=== PATIENT | female | born 1980 | race Caucasian/White ===

== ENCOUNTER 2025-06-06 17:36 | Inpatient (IN) ==
--- NOTE | 2025-06-06 17:49 | Emergency Department Note ---
Impression & Plan Colitis, Melena, Inflammatory bowel disease, Abdominal pain ED Provider Note NAME: SIERRA FALK AGE: 45 SEX: F : 1980 ARRIVES VIA: Walk-In INFORMANT: Patient herself and family. ED PROVIDER(S): Qian Valentino PA-C, [Pamela Paulino MD] CHIEF COMPLAINT: Abdominal pain HISTORY OF PRESENTING ILLNESS: The patient is a 45-year-old female with no other significant past medical history who presents to the emergency department due to severe lower abdominal pain, nausea, and vomiting. Her abdominal pain is worse in the left lower quadrant. She reports having bloody stools for the last 2 months and has been following with her primary care provider. She states she is in the process of being diagnosed with ulcerative colitis and has completed multiple rounds of antibiotics and steroids however is not able to see GI for another month. She reports pain, nausea, and bloody stools are persistent and worsening. She had a colonoscopy in February that removed a polyp which was normal and did not show any other abnormality. She then reported feeling extremely constipated, being prescribed magnesium citrate, and then having abdominal pain and blood in her stool since then. She is tearful and confirms this is her fourth emergency department visit and she feels as if she has not gotten any help. She denies fever, chest pain, shortness of breath, URI symptoms, urinary symptoms. REVIEW OF SYSTEMS: See HPI for pertinent positives and pertinent negatives. ALLERGIES: NKDA MEDICATIONS: See below PAST MEDICAL HISTORY: See below PHYSICAL EXAM: VITALS: Vitals are noted on the nurses note and reviewed by myself. Vital signs stable. GENERAL: 45-year-old female, ill-appearing, tearful, in no acute distress, nondiaphoretic, well-developed well-nourished. SKIN: Pale appearing. Capillary refill less than 2 seconds. HEENT: Normocephalic. PERRLA. EOMI. Nares patent. Mucous membranes moist. Neck is supple without nuchal rigidity. HEART: Regular rate and rhythm without murmurs gallops or rubs. LUNGS: CTA BL without wheezes, rales or rhonchi. No retractions or accessory muscle use. ABDOMEN: Positive BS x 4. Soft, diffuse tenderness worse in the LLQ, without masses or organomegaly. Chauhan sign negative. No guarding or rebound tenderness. MUSCULOSKELETAL: No gross musculoskeletal defects. NEURO: Patient was alert and oriented to person place and time. No focal neurological deficits. RECTAL - No rectal fissures. No active bleeding. A sterile, water-soluble lubricant was applied to the examiner's finger prior to internal exam. No rectal vault tenderness. No rectal masses. Stool Guaiac Test: Hemoccult positive. DIFFERENTIAL DIAGNOSIS: Differential diagnosis includes appendicitis, GI bleed, UC, Crohn's, hemorrhoids, diverticulitis, bowel obstruction, inflammatory bowel disease, renal colic, PUD, biliary pathology, pancreatitis, mesenteric ischemia, aortic pathology, infection, genitourinary, UTI, perforated viscus, among others. ED COURSE AND MEDICAL DECISION MAKING: MEDICATIONS GIVEN: Zofran 4 mg IV, Tylenol 1000 mg IV, morphine 4 mg IV, 1 L normal saline, morphine 2 mg IV, Zofran 4 mg IV, morphine 2 mg IV MONITOR: Continuous night shift manager: Order was placed for continuous night shift manager. Patient was placed on the night shift manager and continuous pulse ox. Patient was noted to be in normal sinus rhythm at an initial rate of 115 bpm per my interpretation. EKG: EKG was interpreted by myself as sinus tachycardia. No obvious arrhythmia. MT interval [address] or T wave abnormality. No previous EKG for comparison. INTERPRETATION OF LABS: I interpreted the labs with full lab results as below in the lab section of this note. Pertinent lab results discussed in the MDM section below. INTERPRETATION OF IMAGING: I informally interpreted the patient's CT abdomen and pelvis which does show colitis. No obvious gallbladder pathology, no obstructing calculi, no bowel obstruction. I reviewed the formal report below. ESCALATION OF CARE CONSIDERED: Escalation of care was considered as the patient presents to the emergency department due to hematochezia for 2 months and in the process of being diagnosed with UC by primary care. She is not able to get in with a GI specialist for another month. Full workup in ER shows severe colitis, Hemoccult positive, and intractable abdominal pain, nausea, and vomiting. The patient was admitted to medicine for further management. CONSULTATIONS: On-call hospitalist - Presented the patient and findings of severe colitis and hematochezia for 2 months. Patient has tried 2 rounds of antibiotics and steroids without improvement. Patient is still having abdominal pain, nausea, and vomiting. Hemoccult positive. They agreed to evaluate the patient and admitting her to medicine. MDM SUMMARY: I evaluated the 45-year-old female who presents to the emergency department due to 2 months of blood in her stool, abdominal pain, nausea, and vomiting. See HPI and PE above. Patient is tachycardic. She is normotensive and afebrile. Initially Zofran, Tylenol, morphine, and 1 L normal saline given for symptom management. Labs obtained showing no leukocytosis. Hemoglobin 10.3 hematocrit 32.5. No ARCENIO. Lactate 1.4. Procalcitonin 0.28. Calcium lowered at 8.2. No other electrolyte abnormality. Normal LFTs. Troponin 4.7. CRP 11.5. ESR 109. All labs reviewed with the patient. Urinalysis obtained showing no concern for UTI or hematuria. Hemoccult positive. Additionally 2 mg morphine and [address] abdomen pelvis shows severe colitis of the left hemicolon and rectosigmoid. Pancreas appears mildly edematous and lipase is < 3. Incidental finding of a 3 mm right middle lobe nodule that is nonspecific noted recommending follow-up CT in 3 to 6 months. All imaging results including incidental findings reviewed with the patient. Patient is still in a significant amount of discomfort. I do believe the patient warrants admission for further management and treatment. Consultation with the on-call hospitalist can be seen in detail above. They agreed to evaluating the patient and admitting her to medicine. She was given another morphine 2 mg IV. Patient is agreeable to admission and all questions answered. The patient was admitted in stable condition. DIAGNOSIS: Colitis, melena, IBD, abdominal pain The chart was completed utilizing [employer] Speech voice recognition software. Grammatical errors, random word insertions, pronoun errors, and incomplete sentences are an occasional consequence of this system due to software limitations, ambient noise, and hardware issues. Any formal questions or concerns about the content, text, or information contained within the body of this dictation should be directly addressed to the provider for clarification. TREATMENT PLAN/DISCHARGE INSTRUCTIONS: The patient was admitted to the hospital. See that note for further workup and management. 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 Beliefs That Will Affect Care: None Current Living Situation: Family Current Living Situation Comment: lives w/ 2 school age children Feels Safe at Home: Yes Assistive Devices: None Allergies Allergies Allergy/AdvReac Type Severity Reaction Status Date / Time No Known Allergies Allergy Unverified 06/06/25 21:55 Home Meds Home Medications Medication Instructions Recorded Confirmed ferrous sulfate 325 mg (65 mg 325 mg PO HS 06/06/25 06/06/25 iron) tablet ondansetron 4 mg disintegrating 4 mg PO Q6 PRN Nausea And Vomiting 06/06/25 06/06/25 tablet prednisone 10 mg tablets in a dose 10 mg PO UD 06/06/25 06/06/25 pack promethazine 12.5 mg tablet 12.5 mg PO Q6 PRN Nausea 06/06/25 06/06/25 quetiapine 25 mg tablet 25 mg PO HS 06/06/25 06/06/25 quetiapine 50 mg tablet 50 mg PO HS 06/06/25 06/06/25 Results & Data (ED) Vital Signs Vital Signs - 24 hr 06/06/25 17:44 Temperature 36.3 C L Temperature Source Temporal Artery Scan Pulse Rate 140 H Pulse Rhythm Regular Respiratory Rate 20 Respiratory Effort / Characteristics Non-Labored Spontaneous Respiratory Depth Normal Respiratory Pattern Regular Blood Pressure 108/88 Blood Pressure Mean 94 Pulse Oximetry 99 Oxygen Delivery Method Room Air Sepsis Recent Fever Within 48 Hours No Sepsis New/Unexplained Change in Mental Status No Sepsis Action Taken by Nursing No Action Required Laboratory Data 06/09/25 09:01 06/09/25 08:20 Lab Results 06/06/25 06/06/25 06/06/25 Range/Units 18:02 19:30 20:05 WBC 10.57 (4.8-10.8) K/ul RBC 3.32 L (4.20-5.40) M/uL Hgb 10.3 L (12.0-16.0) g/dL Hct 32.5 L (37.0-47.0) % MCV 97.9 (80.0-100.0) fL MCH 31.0 (25.0-34.0) pg MCHC 31.7 L (32.0-36.0) g/dL RDW Std Deviation 56.5 H (36.4-46.3) fL RDW Coeff of Pancho 16.2 H (11.5-14.5) % Plt Count 777 H (130-400) K/uL MPV 8.1 L (9.4-12.4) fL Immature Gran % (Auto) 6.2 % Neut % (Auto) 65.9 % Lymph % (Auto) 19.8 % Bucks % (Auto) 6.9 % Eos % (Auto) 0.5 % Baso % (Auto) 0.7 % Neut # (Auto) 6.97 H (1.40-6.50) K/uL Lymph # (Auto) 2.09 (1.20-3.40) K/uL Bucks # (Auto) 0.73 H (0.11-0.59) K/uL Eos # (Auto) 0.05 (0.00-0.50) K/uL Baso # (Auto) 0.07 (0.00-0.20) K/uL Immature Gran # (Auto) 0.66 H (0.01-0.20) K/uL Absolute Nucleated RBC 0.19 H (0.00-0.12) K/uL Nucleated RBC % (auto) 1.8 % Toxic Vacuolation Occasional Dohle Bodies 1+ Polychromasia 2+ ESR 109 H (0-20) mm/hr Sodium 134 L (136-145) mmol/L Potassium 3.7 (3.5-5.1) mmol/L Chloride 97 L (98-107) mmol/L Carbon Dioxide 27 (21-32) mmol/L Anion Gap 10 (3-11) BUN 11 (6-23) mg/dl Creatinine 0.55 L (0.6-1.2) mg/dl Est Cr Clr Drug Dosing 118.0 ml/min eGFR 115.84 BUN/Creatinine Ratio 20.0 (10-20) Glucose 108 H (70-99(Fasting)) mg/dl Lactate 1.7 (0.4-2.0) mmol/L Calcium 8.2 L (8.6-10.3) mg/dl Total Bilirubin 0.4 (0.2-1.0) mg/dl AST 18 (13-39) U/L ALT 55 H (7-52) U/L Alkaline Phosphatase 124 H (34-104) U/L Troponin I High Sens 4.7 (0-14) pg/ml C-Reactive Protein 11.50 H (0-0.5) mg/dl Total Protein 6.2 (6.0-8.3) gm/dl Albumin 2.7 L (3.4-5.0) gm/dl Globulin 3.5 (2.5-4.0) gm/dl Albumin/Globulin Ratio 0.8 L (0.9-2) Lipase < 3 L (11-82) U/L Procalcitonin 0.28 (0-0.5) ng/ml Urine Color Yellow Urine Appearance Clear (Clear) Urine pH 6.5 (4.5-7.5) Ur Specific [place] 1.020 (1.000-1.030) Urine Protein Negative (Negative) Urine Glucose (UA) Negative (Negative) Urine Ketones Negative (Negative) Urine Blood Negative (Negative) Urine Nitrite Negative (Negative) Urine Bilirubin Negative (Negative) Urine Urobilinogen Negative (Negative) Ur Leukocyte Esterase Trace H (Negative) Urine WBC (Auto) 0-5 (0-5) /hpf Urine RBC (Auto) 0-2 (0-2) /hpf U Hyaline Cast (Auto) 0-2 (0-2) /lpf U Epithel Cells (Auto) 3-5 H (0-2) /hpf Urine Bacteria (Auto) None Seen (None Seen) Urine Comment Hep Bs Antibody Immune Hep Bs Antibody, Quant > 500.00 (>or=10mIU/mL Immune) mIU/mL Hepatitis C Antibody Negative (Negative) Administered Medications Ergocalciferol (Ergocalciferol 1250 Mcg (50,000 Units) Cap) 1,250 mcg PO Q7D@0900 [facility] Stop: 07/08/25 14:59 Last Admin: 06/08/25 16:30 Dose: 1,250 mcg Documented By: TLM Hydromorphone HCl (Hydromorphone Inj 0.5 Mg/0.5 Ml Syr) 0.25 mg IV Q4H PRN PRN Reason: Moderate Pain (Scale 4, 5, 6) Stop: 06/21/25 02:49 Last Admin: 06/09/25 07:57 Dose: 0.25 mg Documented By: Admin: 06/08/25 15:44 Dose: 0.25 mg Documented By: ROLLY Hydromorphone HCl (Hydromorphone Inj 0.5 Mg/0.5 Ml Syr) 0.5 mg IV Q4H PRN PRN Reason: Severe Pain (Scale 7, 8, 9,10) Stop: 06/21/25 02:49 Last Admin: 06/09/25 20:58 Dose: 0.5 mg Documented By: Admin: 06/09/25 13:57 Dose: 0.5 mg Documented By: Admin: 06/09/25 02:46 Dose: 0.5 mg Documented By: Admin: 06/08/25 22:35 Dose: 0.5 mg Documented By: Admin: 06/08/25 16:30 Dose: 0.5 mg Documented By: Admin: 06/08/25 05:18 Dose: 0.5 mg Documented By: Admin: 06/07/25 23:47 Dose: 0.5 mg Documented By: Admin: 06/07/25 19:57 Dose: 0.5 mg Documented By: Admin: 06/07/25 15:46 Dose: 0.5 mg Documented By: Admin: 06/07/25 11:59 Dose: 0.5 mg Documented By: Admin: 06/07/25 08:55 Dose: 0.5 mg Documented By: ASA Sodium Chloride (Nss) 1,000 mls @ 150 mls/hr IV .Q6H40M YESSICA Stop: 06/10/25 02:49 Last Admin: 06/09/25 04:47 Dose: Not Given Documented By: Infusion: 06/08/25 19:47 Dose: Infused Documented By: Infusion: 06/08/25 15:50 Dose: 150 mls/hr Documented By: Infusion: 06/08/25 14:05 Dose: 0 mls/hr Documented By: Admin: 06/08/25 10:10 Dose: 150 mls/hr Documented By: Infusion: 06/08/25 09:59 Dose: Infused Documented By: Admin: 06/08/25 03:18 Dose: 150 mls/hr Documented By: Infusion: 06/07/25 23:34 Dose: Infused Documented By: Admin: 06/07/25 18:34 Dose: 200 mls/hr Documented By: Infusion: 06/07/25 17:48 Dose: Infused Documented By: Admin: 06/07/25 12:48 Dose: 200 mls/hr Documented By: Infusion: 06/07/25 12:48 Dose: Infused Documented By: Admin: 06/07/25 03:01 Dose: 100 mls/hr Documented By: CARLIE Acetaminophen (Ofirmev) 1,000 mg in 100 mls @ 400 mls/hr IV Q8H PRN PRN Reason: Pain or Fever Stop: 06/10/25 02:49 Last Infusion: 06/08/25 09:40 Dose: Infused Documented By: Admin: 06/08/25 09:25 Dose: 400 mls/hr Documented By: JESSICA Pantoprazole Sodium (Protonix) 40 mg in 10 mls @ 5 mls/min IV BID YESSICA Stop: 07/07/25 20:59 Last Admin: 06/09/25 20:58 Dose: 5 mls/min Documented By: Admin: 06/09/25 07:59 Dose: 5 mls/min Documented By: Admin: 06/08/25 20:44 Dose: 5 mls/min Documented By: Admin: 06/08/25 08:45 Dose: 5 mls/min Documented By: Admin: 06/07/25 19:49 Dose: 5 mls/min Documented By: Methylprednisolone 30 mg/ (Syringe) 0.48 mls @ 1.5 mls/min IV Q12H YESSICA Stop: 07/08/25 15:44 Last Admin: 06/09/25 16:23 Dose: 1.5 mls/min Documented By: Admin: 06/09/25 02:47 Dose: 1.5 mls/min Documented By: Admin: 06/08/25 16:30 Dose: 1.5 mls/min Documented By: JESSICA Iron Sucrose 200 mg/ Sodium (Chloride) 110 mls @ 220 mls/hr IV DAILY YESSICA Stop: 06/12/25 15:14 Last Infusion: 06/09/25 17:05 Dose: Infused Documented By: Admin: 06/09/25 16:22 Dose: 220 mls/hr Documented By: GERRY Mesalamine (Mesalamine 800 Mg Tabcr) 800 mg PO TID YESSICA Stop: 07/09/25 13:59 Last Admin: 06/09/25 20:58 Dose: 800 mg Documented By: Admin: 06/09/25 13:57 Dose: 800 mg Documented By: GERRY Ondansetron HCl (Ondansetron Inj 2 Mg/Ml 2 Ml Vial) 4 mg IV Q6H PRN PRN Reason: Nausea Stop: 07/07/25 02:49 Last Admin: 06/08/25 15:45 Dose: 4 mg Documented By: Admin: 06/08/25 00:25 Dose: 4 mg Documented By: Admin: 06/07/25 07:54 Dose: 4 mg Documented By: ANAY Quetiapine Fumarate (Quetiapine Fumarate 25 Mg Tablet) 75 mg PO HS YESSICA Stop: 07/07/25 20:59 Last Admin: 06/09/25 20:58 Dose: 75 mg Documented By: Admin: 06/08/25 20:45 Dose: 75 mg Documented By: Admin: 06/07/25 19:49 Dose: 75 mg Documented By: MG Vancomycin HCl (Vancomycin Hcl 125 Mg Cap) 125 mg PO Q6 YESSICA Stop: 06/17/25 05:59 Last Admin: 06/09/25 17:59 Dose: 125 mg Documented By: Admin: 06/09/25 11:29 Dose: 125 mg Documented By: Admin: 06/09/25 06:22 Dose: 125 mg Documented By: Admin: 06/08/25 22:49 Dose: 125 mg Documented By: Admin: 06/08/25 16:30 Dose: 125 mg Documented By: Admin: 06/08/25 12:30 Dose: Not Given Documented By: Admin: 06/08/25 05:19 Dose: 125 mg Documented By: Admin: 06/07/25 23:11 Dose: 125 mg Documented By: Admin: 06/07/25 18:46 Dose: 125 mg Documented By: Admin: 06/07/25 11:59 Dose: 125 mg Documented By: Admin: 06/07/25 05:34 Dose: 125 mg Documented By: BJS Discontinued Medications Bisacodyl (Bisacodyl 5 Mg Tabec) 20 mg PO NOW ONE Stop: 06/07/25 16:37 Last Admin: 06/07/25 18:13 Dose: 20 mg Documented By: ASA Diphenhydramine HCl (Diphenhydramine 50 Mg/Ml Vial) 25 mg IV ONE YESSICA Stop: 06/08/25 12:00 Last Admin: 06/08/25 09:25 Dose: 25 mg Documented By: TLM Hydromorphone HCl (Hydromorphone Inj 0.5 Mg/0.5 Ml Syr) 0.5 mg IV NOW STA Stop: 06/07/25 01:07 Last Admin: 06/07/25 01:10 Dose: 0.5 mg Documented By: jared Sodium Chloride (Nss) 1,000 mls @ 999 mls/hr IV .Q1H1M ONE Stop: 06/06/25 19:00 Last Infusion: 06/06/25 19:24 Dose: Infused Documented By: bolivarr Admin: 06/06/25 18:07 Dose: 999 mls/hr Documented By: ML Acetaminophen (Ofirmev) 1,000 mg in 100 mls @ 400 mls/hr IV NOW STA Stop: 06/06/25 18:14 Last Infusion: 06/06/25 18:31 Dose: Infused Documented By: Infusion: 06/06/25 18:31 Dose: Infused Documented By: Admin: 06/06/25 18:07 Dose: 400 mls/hr Documented By: ML Sodium Chloride (Nss) 500 mls @ 999 mls/hr IV .Q31M ONE Stop: 06/07/25 01:43 Last Infusion: 06/07/25 01:57 Dose: Infused Documented By: vgr Admin: 06/07/25 01:24 Dose: 999 mls/hr Documented By: vgr Iron Sucrose 200 mg/ Sodium (Chloride) 110 mls @ 220 mls/hr IV TODAY ONE Stop: 06/07/25 08:30 Last Admin: 06/07/25 08:54 Dose: Not Given Documented By: ASA Potassium Chloride (K Anatoly / Wtr) 10 meq in 100 mls @ 100 mls/hr IV Q1H YESSICA Stop: 06/07/25 18:59 Last Infusion: 06/07/25 22:20 Dose: Infused Documented By: Admin: 06/07/25 21:19 Dose: 100 mls/hr Documented By: Infusion: 06/07/25 21:05 Dose: Infused Documented By: Admin: 06/07/25 20:05 Dose: 100 mls/hr Documented By: Infusion: 06/07/25 19:31 Dose: Infused Documented By: Admin: 06/07/25 18:31 Dose: 100 mls/hr Documented By: ASA Potassium Phosphate 9 mmol/ (Sodium Chloride) 253 mls @ 88 mls/hr IV ONE ONE Stop: 06/08/25 11:22 Last Infusion: 06/08/25 12:33 Dose: Infused Documented By: Admin: 06/08/25 09:40 Dose: 88 mls/hr Documented By: TLM Ioversol (Optiray 320 100ml) 93 ml IV ONCE ONE Stop: 06/06/25 19:08 Last Admin: 06/06/25 19:08 Dose: 93 ml Documented By: EDK Lidocaine HCl (Lidocaine 2% 2 Ml Vial/Amp(20mg/Ml)) Confirm Administered Dose 40 mg INFIL .STK-MED ONE Stop: 06/08/25 14:36 Last Admin: 06/08/25 16:08 Dose: Not Given Documented By: TLM Lidocaine HCl (Lidocaine 2% 2 Ml Vial/Amp(20mg/Ml)) Confirm Administered Dose 40 mg INFIL .STK-MED ONE Stop: 06/08/25 14:38 Last Admin: 06/08/25 16:09 Dose: Not Given Documented By: TLM Mesalamine (Mesalamine 800 Mg Tabcr) 800 mg PO PC YESSICA Stop: 07/08/25 17:59 Last Admin: 06/09/25 08:01 Dose: 800 mg Documented By: Admin: 06/08/25 16:30 Dose: 800 mg Documented By: TLM Morphine Sulfate (Morphine Sulfate 4 Mg/Ml 1 Ml Carp\Vial) 4 mg IV NOW STA Stop: 06/06/25 18:34 Last Admin: 06/06/25 18:40 Dose: 4 mg Documented By: JUAN JOSÉ Morphine Sulfate (Morphine Sulfate 2 Mg/Ml Carp) 2 mg IV NOW STA Stop: 06/06/25 19:46 Last Admin: 06/06/25 19:53 Dose: 2 mg Documented By: vgr Morphine Sulfate (Morphine Sulfate 2 Mg/Ml Carp) 2 mg IV NOW STA Stop: 06/06/25 22:48 Last Admin: 06/06/25 23:06 Dose: 2 mg Documented By: vgr Ondansetron HCl (Ondansetron Inj 2 Mg/Ml 2 Ml Vial) 4 mg IV NOW STA Stop: 06/06/25 18:01 Last Admin: 06/06/25 18:07 Dose: 4 mg Documented By: ML Ondansetron HCl (Ondansetron Inj 2 Mg/Ml 2 Ml Vial) 4 mg IV NOW STA Stop: 06/06/25 22:48 Last Admin: 06/06/25 23:06 Dose: 4 mg Documented By: bolivarr Polyethylene Glycol (Polyethylene (Miralax) 17 Gm Pack) 238 gm PO ONCE ONE Stop: 06/07/25 18:01 Last Admin: 06/07/25 18:19 Dose: 238 gm Documented By: ASA Potassium Phosphate (Potassium Phos 3 Mmol/1 Ml Infusion) 9 mmol IV NOW STA Stop: 06/08/25 08:17 Last Admin: 06/08/25 09:40 Dose: 9 mmol Documented By: TLSameer Propofol (Propofol Iv Emulsion 10 Mg/Ml 20 Ml Vial) Confirm Administered Dose 200 mg IV .STK-MED ONE Stop: 06/08/25 14:36 Last Admin: 06/08/25 16:09 Dose: Not Given Documented By: TLM Propofol (Propofol Iv Emulsion 10 Mg/Ml 20 Ml Vial) Confirm Administered Dose 200 mg IV .STK-MED ONE Stop: 06/08/25 14:38 Last Admin: 06/08/25 16:09 Dose: Not Given Documented By: TLSameer Simethicone (Simethicone 80 Mg Chew) 80 mg PO NOW ONE Stop: 06/09/25 19:41 Last Admin: 06/09/25 20:58 Dose: 80 mg Documented By: JRK Discharge Plan Visit Data Chief Complaint: Abdominal Pain Stated Complaint: ABDOMINAL PAIN ED Provider: Pamela Paulino ED Midlevel Provider: Qian Valentino Discharge Problem: Colitis, Melena, Inflammatory bowel disease, Abdominal pain Patient Disposition: Admitted As Inpatient Condition: Good Discharge Instructions Interventions: ED Discharge Assessment Last Done: 06/07/25 02:29 Discharge Problem: Abdominal pain Qualifiers: Abdominal location: left lower quadrant Qualified Code(s): R10.32 - Left lower quadrant pain
[2025-06-06] MEDS: ACETAMINOPHEN 1,000 MG/100 ML VIAL IV STA (18:07)
[2025-06-06] MEDS: SODIUM CHLORIDE 0.9% 1,000 ML IV ONE (18:07)
[2025-06-06] MEDS: ONDANSETRON INJ 2 MG/ML 2 ML VIAL IV STA ×2 (18:07→23:06)
[2025-06-06 18:18] LABS: Hematocrit (blood only) 32.5 % (37.0-47.0); Hemoglobin 10.3 g/dL (12.0-16.0); Mean Corpuscular Hemoglobin 31.0 pg (25.0-34.0); Mean Corpuscular Volume 97.9 fL (80.0-100.0); Platelet Count 777 K/uL (130-400); RDW Standard Deviation 56.5 fL (36.4-46.3); Red Blood Count 3.32 M/uL (4.20-5.40); White Blood Count 10.57 K/ul (4.8-10.8)
[2025-06-06] MEDS: MoRPHine SULFATE 4 MG/ML 1 ML CARP\\VIAL IV STA (18:40)
[2025-06-06 18:42] LABS: Anion Gap 10 (3-11); Blood Urea Nitrogen 11 mg/dl (6-23); Calcium 8.2 mg/dl (8.6-10.3); Carbon Dioxide 27 mmol/L (21-32); Chloride 97 mmol/L (98-107); Creatinine Clr Calc Pharmacy 118.0 ml/min; Glucose 108 mg/dl (70-99(Fasting)); Potassium 3.7 mmol/L (3.5-5.1); Sodium 134 mmol/L (136-145)
[2025-06-06 18:46] LABS: Alanine Aminotransferase 55 U/L (7-52); Albumin Globulin Ratio 0.8 (0.9-2); Albumin Level 2.7 gm/dl (3.4-5.0); Alkaline Phosphatase 124 U/L (34-104); Bilirubin,Total 0.4 mg/dl (0.2-1.0); Globulin 3.5 gm/dl (2.5-4.0); Lipase < 3 U/L (11-82); Total Protein 6.2 gm/dl (6.0-8.3)
[2025-06-06] MEDS: OPTIRAY 320 100ml IV ONE (19:08)
[2025-06-06 19:10] LABS: Immature Granulocytes % (auto) 6.2 %
[2025-06-06 19:11] LABS: Immature Granulocytes # (auto) 0.66 K/uL (0.01-0.20); Polychromasia 2+
[2025-06-06] MEDS: MoRPHine SULFATE 2 MG/ML CARP IV STA ×2 (19:53→23:06)
[2025-06-06 19:57] LABS: Appearance Urine Clear (Clear); Bacteria Urine Automated None Seen (None Seen); Cast Urine Automated 0-2 /lpf (0-2); Glucose Urine UA Negative (Negative); RBC Urine Automated 0-2 /hpf (0-2); WBC Urine Automated 0-5 /hpf (0-5)
--- NOTE | 2025-06-06 20:24 | CT Scan Report ---
CT ABDOMEN and PELVIS with INTRAVENOUS CONTRAST HISTORY: Abdominal pain TECHNIQUE: CT abdomen and pelvis with contrast. IV CONTRAST: 100 mL of OMNIPAQUE 300 ENTERIC CONTRAST: Not Given COMPARISON: None. FINDINGS: LOWER CHEST: 3 mm nodular density in the subpleural right middle lobe (series 2, image 1) LIVER: No focal lesion identified. Hepatic steatosis. GALLBLADDER/BILIARY: Unremarkable gallbladder. No abnormal biliary dilatation. SPLEEN: Unremarkable. PANCREAS: The pancreas appears mildly edematous. ADRENALS: Unremarkable. KIDNEYS: Nonobstructing intrarenal calculi bilaterally, measuring up to 1.1 cm in the right kidney and 4 mm in the left kidney. No hydronephrosis identified. PERITONEUM/RETROPERITONEUM. No lymphadenopathy by size criteria. No aortic aneurysm. GASTROINTESTINAL: No obstruction. Intense long-segment inflammation of the left hemicolon and the rectosigmoid with diffuse wall thickening and pericolonic fat stranding. Normal appendix is identified. REPRODUCTIVE: IUD in place. URINARY BLADDER: Unremarkable. ABDOMINAL WALL: No significant hernia is identified. BONES: No acute findings. IMPRESSION: Severe colitis with intense long-segment inflammation of the left hemicolon and the rectosigmoid The pancreas appears mildly edematous. Recommend correlation with lipase to exclude pancreatitis 3 mm right middle lobe subpleural nodule is nonspecific and may be infectious/inflammatory in nature. If indicated, thoracic CT follow-up in 3-6 months may be considered. Electronically signed by Nakul Larios 06-06-2025 8:24 PM
--- NOTE | 2025-06-07 01:01 | History & Physical Report ---
Date of Service June 07, 2025 Assessment & Plan (1) Colitis: Plan: 45-year-old female with past medical history significant for anxiety comes because of ongoing abdominal pain and bloody stools. Patient lives around 1 hour from [place]. Patient states she had colonoscopy in February 2025 and 1 polyp was taken out and the pathology came back unremarkable as per patient. Since mid of March 2025 she started to have some bloody stools. When she c alled her PCP and GI ,the bleeding was thought to be from internal hemorrhoids which was seen during the colonoscopy. Patient was advised for high-fiber. After that patient had episode of constipation and advised for mag citrate. After mag citrate she started to have diarrhea. The diarrhea did not subsided since then. And she is also having bloody stools. She had CAT scan and it was thought she was had diverticulitis. And she was given antibiotics for diverticulitis in first week of May 2025. As her symptoms did not improved she was put on a course of prednisone twice. Her last dose of prednisone is tomorrow. But her symptoms are not improving even though she is on steroids. Abdominal pain is getting worse. She is having several episodes of bloody stools daily. Denies any fevers. Has nausea but no vomiting. Appetite is down. Denies chest pain or shortness of breath. No cough. No headache. No runny nose or sore throat. Parents in the room. Severe colitis On CT scan Ongoing abdominal pain and bloody stools Pain control N.p.o. IV fluids Patient had a course of antibiotics in first week of May for possible diverticulitis Patient also had prednisone for possible colitis But symptoms not improving Will check stool studies and stool for C. difficile Fecal calprotectin GI consult in a.m. for further recommendations Anemia Hemoglobin 10.3 Will follow vitamin B-12 folate levels and iron studies Continue iron supplement Blood consent obtained will follow labs Tachycardia Possibly ongoing abdominal pain and bloody stools Will get EKG and troponin levels(EKG sinus tachycardia, troponin 4.7 and 3.8) Fluids will follow repeat lactic acid levels if not improving will do echo and ct chest pe study Will monitor Anxiety Continue home medications DVT prophylaxis SCDs Disposition Med/telemetry Full code Addendum: Stool c diff came back positive for Gene, negative for toxin. Started on po Vancomycin. History of Present Illness Chief Complaint: Abdominal pain and bloody stools Primary Care Provider: HEYDI Solano 45-year-old female with past medical history significant for anxiety comes because of ongoing abdominal pain and bloody stools. Patient lives around 1 hour from [place]. Patient states she had colonoscopy in February 2025 and 1 polyp was taken out and the pathology came back unremarkable as per patient. Since mid of March 2025 she started to have some bloody stools. When she called her PCP and GI ,the bleeding was thought to be from internal hemorrhoids which was seen during the colonoscopy. Patient was advised for high-fiber. After that patient had episode of constipation and advised for mag citrate. After mag citrate she started to have diarrhea. The diarrhea did not subsided since then. And she is also having bloody stools. She had CAT scan and it was thought she was had diverticulitis. And she was given antibiotics for diverticulitis in first week of May 2025. As her symptoms did not improved she was put on a course of prednisone twice. Her last dose of prednisone is tomorrow. But her symptoms are not improving even though she is on steroids. Abdominal pain is getting worse. She is having several episodes of bloody stools daily. Denies any fevers. Has nausea but no vomiting. Appetite is down. Denies chest pain or shortness of breath. No cough. No headache. No runny nose or sore throat. Parents in the room. Past medical history. As mentioned above. Past surgical history. Colonoscopy. Tooth extraction. Social history. No smoking. No alcohol use. Family history. Paternal grandfather had leukemia and lung cancer. Paternal grandmother had skin cancer. Allergies Allergy/AdvReac Type Severity Reaction Status Date / Time No Known Allergies Allergy Unverified 06/06/25 21:55 Home Medications Medication Instructions Recorded Confirmed Type ferrous sulfate 325 mg (65 mg 325 mg PO HS 06/06/25 06/06/25 History iron) tablet ondansetron 4 mg disintegrating 4 mg PO Q6 PRN Nausea And Vomiting 06/06/25 06/06/25 History tablet prednisone 10 mg tablets in a dose 10 mg PO UD 06/06/25 06/06/25 History pack promethazine 12.5 mg tablet 12.5 mg PO Q6 PRN Nausea 06/06/25 06/06/25 History quetiapine 25 mg tablet 25 mg PO HS 06/06/25 06/06/25 History quetiapine 50 mg tablet 50 mg PO HS 06/06/25 06/06/25 History Past Med/Surg History Problem List (Updated 06/07/25 @ 01:09 by Derrek Weston MD) Colitis Social History Smoking Status: Never smoker Hx Alcohol Use: No Hx Substance Use: No Preferred Language: Welsh Communication Ability: Effective Psychiatry Adult Physician Required: No Beliefs That Will Affect Care: None Current Living Situation: Family Current Living Situation Comment: lives w/ 2 school age children Other Information That Helps Us Care for You: No Feels Safe at Home: Yes Safety Concerns: Feels Safe At This Time Assistive Devices: None Review of Systems Review of Systems: All systems reviewed & are unremarkable except as noted in HPI & below Physical Exam Physical Exam: General- Not in distress Head- atraumatic Eyes- PERRL. ENT- oropharynx clear Neck- supple, no JVD. Lungs- clear to auscultation no wheezing or crackles Heart- regular rhythm; no murmur, no gallop. Abdomen- normal bowel sounds, soft, diffuse tender, guarding present, no distension Extremities- no pretibial edema, no erythema seen Neuro- alert, oriented PERRL, no facial palsy; no dysarthria; moves extremities Results & Data Results & Data Vital Signs (Past 12 Hours) Vital Signs Temp Pulse Pulse Resp BP BP Pulse Ox 06/06/25 23:13 120 H 17 109/68 97 06/06/25 21:00 103 H 16 92/73 L 99 06/06/25 19:21 93 H 16 108/79 99 06/06/25 18:55 96 H 06/06/25 18:02 110 H 06/06/25 17:44 36.3 C L 140 H 20 108/88 99 O2 Del Method 06/06/25 23:13 Room Air 06/06/25 21:00 Room Air 06/06/25 19:21 Room Air 06/06/25 18:55 06/06/25 18:02 06/06/25 17:44 Room Air Diagnostic Findings Laboratory Results WBC 10.57 K/ul (4.8-10.8) 06/06/25 18:02 RBC 3.32 M/uL (4.20-5.40) L 06/06/25 18:02 Hgb 10.3 g/dL (12.0-16.0) L 06/06/25 18:02 Hct 32.5 % (37.0-47.0) L 06/06/25 18:02 MCV 97.9 fL (80.0-100.0) 06/06/25 18:02 MCH 31.0 pg (25.0-34.0) 06/06/25 18:02 MCHC 31.7 g/dL (32.0-36.0) L 06/06/25 18:02 RDW Std Deviation 56.5 fL (36.4-46.3) H 06/06/25 18:02 RDW Coeff of Pancho 16.2 % (11.5-14.5) H 06/06/25 18:02 Plt Count 777 K/uL (130-400) H 06/06/25 18:02 MPV 8.1 fL (9.4-12.4) L 06/06/25 18:02 Immature Gran % (Auto) 6.2 % 06/06/25 18:02 Neut % (Auto) 65.9 % 06/06/25 18:02 Lymph % (Auto) 19.8 % 06/06/25 18:02 [place] % (Auto) 6.9 % 06/06/25 18:02 Eos % (Auto) 0.5 % 06/06/25 18:02 Baso % (Auto) 0.7 % 06/06/25 18:02 Neut # (Auto) 6.97 K/uL (1.40-6.50) H 06/06/25 18:02 Lymph # (Auto) 2.09 K/uL (1.20-3.40) 06/06/25 18:02 [place] # (Auto) 0.73 K/uL (0.11-0.59) H 06/06/25 18:02 Eos # (Auto) 0.05 K/uL (0.00-0.50) 06/06/25 18:02 Baso # (Auto) 0.07 K/uL (0.00-0.20) 06/06/25 18:02 Immature Gran # (Auto) 0.66 K/uL (0.01-0.20) H 06/06/25 18:02 Absolute Nucleated RBC 0.19 K/uL (0.00-0.12) H 06/06/25 18:02 Nucleated RBC % (auto) 1.8 % 06/06/25 18:02 Polychromasia 2+ 06/06/25 18:02 ESR 109 mm/hr (0-20) H 06/06/25 18:02 Sodium 134 mmol/L (136-145) L 06/06/25 18:02 Potassium 3.7 mmol/L (3.5-5.1) 06/06/25 18:02 Chloride 97 mmol/L (98-107) L 06/06/25 18:02 Carbon Dioxide 27 mmol/L (21-32) 06/06/25 18:02 Anion Gap 10 (3-11) 06/06/25 18:02 BUN 11 mg/dl (6-23) 06/06/25 18:02 Creatinine 0.55 mg/dl (0.6-1.2) L 06/06/25 18:02 Est Cr Clr Drug Dosing 118.0 ml/min 06/06/25 18:02 eGFR 115.84 06/06/25 18:02 BUN/Creatinine Ratio 20.0 (10-20) 06/06/25 18:02 Glucose 108 mg/dl (70-99(Fasting)) H 06/06/25 18:02 Lactate 1.7 mmol/L (0.4-2.0) 06/06/25 20:05 Calcium 8.2 mg/dl (8.6-10.3) L 06/06/25 18:02 Total Bilirubin 0.4 mg/dl (0.2-1.0) 06/06/25 18:02 AST 18 U/L (13-39) 06/06/25 18:02 ALT 55 U/L (7-52) H 06/06/25 18:02 Alkaline Phosphatase 124 U/L (34-104) H 06/06/25 18:02 Troponin I High Sens 4.7 pg/ml (0-14) 06/06/25 18:02 C-Reactive Protein 11.50 mg/dl (0-0.5) H 06/06/25 18:02 Total Protein 6.2 gm/dl (6.0-8.3) 06/06/25 18:02 Albumin 2.7 gm/dl (3.4-5.0) L 06/06/25 18:02 Globulin 3.5 gm/dl (2.5-4.0) 06/06/25 18:02 Albumin/Globulin Ratio 0.8 (0.9-2) L 06/06/25 18:02 Lipase < 3 U/L (11-82) L 06/06/25 18:02 Procalcitonin 0.28 ng/ml (0-0.5) 06/06/25 18:02 Urine Color Yellow 06/06/25 19:30 Urine Appearance Clear (Clear) 06/06/25 19: Urine pH 6.5 (4.5-7.5) 06/06/25 19: Ur Specific [place] 1.020 (1.000-1.030) 06/06/25 19: Urine Protein Negative (Negative) 06/06/25 19: Urine Glucose (UA) Negative (Negative) 06/06/25 19: Urine Ketones Negative (Negative) 06/06/25 19: Urine Blood Negative (Negative) 06/06/25 19: Urine Nitrite Negative (Negative) 06/06/25 19:30 Urine Bilirubin Negative (Negative) 06/06/25 19:30 Urine Urobilinogen Negative (Negative) 06/06/25 19:30 Ur Leukocyte Esterase Trace (Negative) H 06/06/25 19:30 Urine WBC (Auto) 0-5 /hpf (0-5) 06/06/25 19:30 Urine RBC (Auto) 0-2 /hpf (0-2) 06/06/25 19:30 U Hyaline Cast (Auto) 0-2 /lpf (0-2) 06/06/25 19:30 U Epithel Cells (Auto) 3-5 /hpf (0-2) H 06/06/25 19:30 Urine Bacteria (Auto) None Seen (None Seen) 06/06/25 19: Urine Comment 06/06/25 19: Impressions Abdomen/Pelvis CT 06/06/25 18:02 CT ABDOMEN and PELVIS with INTRAVENOUS CONTRAST HISTORY: Abdominal pain TECHNIQUE: CT abdomen and pelvis with contrast. IV CONTRAST: 100 mL of OMNIPAQUE 300 ENTERIC CONTRAST: Not Given COMPARISON: None. FINDINGS: LOWER CHEST: 3 mm nodular density in the subpleural right middle lobe (series 2, image 1) LIVER: No focal lesion identified. Hepatic steatosis. GALLBLADDER/BILIARY: Unremarkable gallbladder. No abnormal biliary dilatation. SPLEEN: Unremarkable. PANCREAS: The pancreas appears mildly edematous. ADRENALS: Unremarkable. KIDNEYS: Nonobstructing intrarenal calculi bilaterally, measuring up to 1.1 cm in the right kidney and 4 mm in the left kidney. No hydronephrosis identified. PERITONEUM/RETROPERITONEUM. No lymphadenopathy by size criteria. No aortic aneurysm. GASTROINTESTINAL: No obstruction. Intense long-segment inflammation of the left hemicolon and the rectosigmoid with diffuse wall thickening and pericolonic fat stranding. Normal appendix is identified. REPRODUCTIVE: IUD in place. URINARY BLADDER: Unremarkable. ABDOMINAL WALL: No significant hernia is identified. BONES: No acute findings. IMPRESSION: Severe colitis with intense long-segment inflammation of the left hemicolon and the rectosigmoid The pancreas appears mildly edematous. Recommend correlation with lipase to exclude pancreatitis 3 mm right middle lobe subpleural nodule is nonspecific and may be infectious/inflammatory in nature. If indicated, thoracic CT follow-up in 3-6 months may be considered. Electronically signed by Nakul Larios 06-06-2025 8:24 PM Code Status & VTE Plan VTE Prophylaxis Plan VTE Prophylaxis will be ordered: Yes
[2025-06-07] MEDS: HYDROmorphone INJ 0.5 MG/0.5 ML SYR IV STA (01:10)
[2025-06-07] MEDS: SODIUM CHLORIDE 0.9% 500 ML IV ONE (01:24)
[2025-06-07] MEDS: SODIUM CHLORIDE 0.9% 1,000 ML IV SCH (03:01)
[2025-06-07 04:26] LABS: Cdiff Toxin A+B Negative Cdiff Toxin (Negative); Cdiff Toxin B Gene (2yr or >) Positive Cdiff Gene (Neg)
[2025-06-07 04:29] LABS: Adenovirus F 40/41 PCR Not Detected (NotDetected); Campylobacter PCR Not Detected (NotDetected); Enteroaggregative E.coli(EAEC) Not Detected (NotDetected); Shiga-like Toxin E.coli (STEC) Not Detected (NotDetected); Vibrio species PCR Not Detected (NotDetected)
[2025-06-07] MEDS: VANCOMYCIN HCL 125 MG CAP PO SCH (05:34)
[2025-06-07 07:02] LABS: Hematocrit (blood only) 25.8 % (37.0-47.0); Hemoglobin 8.2 g/dL (12.0-16.0); Mean Corpuscular Hemoglobin 30.7 pg (25.0-34.0); Mean Corpuscular Volume 96.6 fL (80.0-100.0); Platelet Count 532 K/uL (130-400); RDW Standard Deviation 55.9 fL (36.4-46.3); Red Blood Count 2.67 M/uL (4.20-5.40); White Blood Count 12.16 K/ul (4.8-10.8)
[2025-06-07 07:25] LABS: Anion Gap 7 (3-11); Blood Urea Nitrogen 13 mg/dl (6-23); Calcium 7.3 mg/dl (8.6-10.3); Carbon Dioxide 26 mmol/L (21-32); Chloride 103 mmol/L (98-107); Creatinine Clr Calc Pharmacy 147.6 ml/min; Glucose 95 mg/dl (70-99(Fasting)); Iron < 10 mcg/dl (35-150); Magnesium 2.0 mg/dl (1.7-2.4); Potassium 3.7 mmol/L (3.5-5.1); Sodium 136 mmol/L (136-145); Total Iron Binding Cap Calc 139 mcg/dl (250-450); Transferrin 99 mg/dl (200-360)
[2025-06-07 07:27] LABS: Immature Granulocytes # (auto) 0.45 K/uL (0.01-0.20); Immature Granulocytes % (auto) 3.7 %; Polychromasia 2+; Toxic Vacuolation 1+
[2025-06-07 07:50] LABS: Folate (Folic Acid),Ser orPlas 11.29 ng/ml (>5.38)
[2025-06-07 07:51] LABS: Vitamin B12 496.0 pg/ml (180-914)
[2025-06-07] MEDS: ONDANSETRON INJ 2 MG/ML 2 ML VIAL IV PRN (07:54)
[2025-06-07 08:14] LABS: Dohle Bodies 1+; Toxic Vacuolation Occasional
[2025-06-07] MEDS: IRON SUCROSE 200 MG in SODIUM CHLORIDE 0.9% 100 ML IV ONE (08:54)
[2025-06-07] MEDS: HYDROmorphone INJ 0.5 MG/0.5 ML SYR IV PRN (08:55)
--- NOTE | 2025-06-07 09:12 | Hospitalist Progress Note ---
Date of Service June 07, 2025 Assessment & Plan (1) Colitis: (2) Acute blood loss anemia: (3) Iron deficiency anemia: (4) Sinus tachycardia: (5) Hypocalcemia: (6) Abnormal finding on CT scan: (7) Anxiety: Plan 45 year old female with PMH significant for anxiety who presented to the ED on 06/06/2025 with abdominal pain and bloody stools and was found to have severe colitis. Colitis Patient presenting with abdominal pain and bloody stools x2 months Underwent colonoscopy in Sept with internal hemorrhoids visualized and removal of benign polyp per patient and then developed bloody diarrhea afterwards Completed course of antibiotics and steroids without improvement Admitting CTAP revealed severe colitis of left hemicolon and rectosigmoid and mildly edematous pancreas (lipase low) Stool studies positive for C diff gene, negative for toxin-> continue vancomycin GI consulted and scheduled colonoscopy 06/08 NPO at midnight Pain control with IV tylenol and dilaudid PRN Acute blood loss anemia Iron deficiency anemia Hgb 10.3 dropped to 8.2 this morning Multifactorial in setting of OLIVIER and hematochezia Iron, TIBC, transferrin all low despite ferrous sulfate 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 Vitamin B12 and folate normal Patient asymptomatic and BP stable Monitor H&H q6hr Transfuse <7.0 Sinus tachycardia HR consistently 115-120s Possibly ongoing abdominal pain and bloody stools EKG revealed sinus tachycardia Troponin and lactate negative x2 Increased MIVF from 100mL/hr to 200mL/hr Monitor telemetry Hypocalcemia Ca 7.3 this am Check ionized ca and vitamin D level with am labs Abnormal CT finding CTAP revealed 3mm right middle lobe subpleural nodule Recommend CT chest follow up in 3-6 months Anxiety Continue Seroquel DVT Prophylaxis: SCDs Code Status: FULL CODE PCP: Irene Olivas () Disposition: Anticipate dc to home pending colonoscopy results Patient seen in collaboration with Dr. Anna. Please see addendum. Admission and Anticipated Discharge Date Admission Date: June 07, 2025 Supervising Physician Co-Signing Physician Notes Pt seen and examined by , care coordinated w/ Mamadou Marcus PA-C, pls refer to her note above for further detail. Pt presents with anemia and GI bleed. stool studies posit. for c. diff gene. and she was started on PO vanco on admission. GI was consulted and concern for UC, plan for colonoscopy tmrw. Pt has been tachycardic, receiving IVF. Currently family present at the bedside. Pt is awake, alert, able to provide history. pt also appears very weak and tired. +tachycardic, lungs CTAB, abdomen soft, mildly tender to palp., no LE edema, moves extremities. Cont. to closely monitor H&H, plan to transfuse if Hgb <7, consent was obtained. K replaced, cont. to monitor. MD Wilfrido Subjective Patient seen resting in bed Reports she sought evaluation for severe lower abdominal pain yesterday and ongoing bloody stools x2 months Pain and nausea are controlled after pain and nausea medicine Denies dizziness, chest pain, SOB, vomiting, dysuria Review of Systems Review of Systems: All systems reviewed & are unremarkable except as noted in HPI & below Physical Exam Physical Exam: General/Psych: WD/WN, sitting up in bed, NAD, conversing easily Head: normocephalic, atraumatic Eyes: normal inspection, PERRL, conjunctivae pink ENT: external ear and nose normal, oropharynx normal Neck: normal visual inspection, trachea midline Respiratory: normal respiratory effort, lungs clear to auscultation, no wheeze/rales/rhonchi, no accessory muscle use Cardiovascular: regular rate and rhythm, no murmur/rub/gallop Extremities: no cyanosis or clubbing, normal peripheral pulses, no BLE edema Abdomen/GI: hypoactive bowel sounds, soft, tender on palpation Neurologic/MSK: A+Ox3, motor strength 5/5, moves all extremities Skin: no rashes, normal color, warm and dry Results & Data Results & Data Vital Signs (Past 12 Hours) Vital Signs Temp Pulse Pulse Pulse Resp BP BP 06/07/25 08:58 36.7 C 122 H 18 101/71 06/07/25 07:21 120 H 06/07/25 02:51 124 H 06/07/25 02:35 36.7 C 136 H 18 108/67 06/07/25 02:29 128 H 16 106/75 06/07/25 01:19 126 H 06/07/25 01:03 122 H 15 119/80 06/06/25 23:13 120 H 17 109/68 Pulse Ox O2 Del Method 06/07/25 08:58 99 Room Air 06/07/25 07:21 06/07/25 02:51 06/07/25 02:35 98 Room Air 06/07/25 02:29 98 Room Air 06/07/25 01:19 06/07/25 01:03 96 Room Air 06/06/25 23:13 97 Room Air Laboratory Results Short CBC 06/06/25 06/07/25 06/07/25 Range/Units 18:02 06:42 10:40 WBC 10.57 12.16 H (4.8-10.8) K/ul Hgb 10.3 L 8.2 L 8.4 L (12.0-16.0) g/dL Hct 32.5 L 25.8 L 25.8 L (37.0-47.0) % Plt Count 777 H 532 H (130-400) K/uL BMP 06/06/25 06/07/25 18:02 06:42 Sodium 134 L 136 Potassium 3.7 3.7 Chloride 97 L 103 Carbon Dioxide 27 26 BUN 11 13 Creatinine 0.55 L 0.42 L Glucose 108 H 95 Calcium 8.2 L 7.3 L Liver Function 06/06/25 Range/Units 18:02 Total Bilirubin 0.4 (0.2-1.0) mg/dl AST 18 (13-39) U/L ALT 55 H (7-52) U/L Alkaline Phosphatase 124 H (34-104) U/L Albumin 2.7 L (3.4-5.0) gm/dl Urine 06/06/25 Range/Units 19:30 Urine Color Yellow Urine Appearance Clear (Clear) Urine pH 6.5 (4.5-7.5) Ur Specific [place] 1.020 (1.000-1.030) Urine Protein Negative (Negative) Urine Glucose (UA) Negative (Negative) I have independently reviewed and interpreted patient's labs including CBC, BMP, mag, phos, iron studies, lactate, troponin, vitamin B12, folate Medications Administered Current Inpatient Medications Hydromorphone HCl (Hydromorphone Inj 0.5 Mg/0.5 Ml Syr) 0.25 mg IV Q4H PRN PRN Reason: Moderate Pain (Scale 4, 5, 6) Stop: 06/21/25 02:49 Hydromorphone HCl (Hydromorphone Inj 0.5 Mg/0.5 Ml Syr) 0.5 mg IV Q4H PRN PRN Reason: Severe Pain (Scale 7, 8, 9,10) Stop: 06/21/25 02:49 Last Admin: 06/07/25 11:59 Dose: 0.5 mg Sodium Chloride (Nss) 1,000 mls @ 200 mls/hr IV .Q5H YESSICA Stop: 06/10/25 02:49 Last Admin: 06/07/25 12:48 Dose: 200 mls/hr Acetaminophen (Ofirmev) 1,000 mg in 100 mls @ 400 mls/hr IV Q8H PRN PRN Reason: Pain or Fever Stop: 06/10/25 02:49 Ondansetron HCl (Ondansetron Inj 2 Mg/Ml 2 Ml Vial) 4 mg IV Q6H PRN PRN Reason: Nausea Stop: 07/07/25 02:49 Last Admin: 06/07/25 07:54 Dose: 4 mg Quetiapine Fumarate (Quetiapine Fumarate 25 Mg Tablet) 75 mg PO HS YESSICA Stop: 07/07/25 20:59 Vancomycin HCl (Vancomycin Hcl 125 Mg Cap) 125 mg PO Q6 YESSICA Stop: 06/17/25 05:59 Last Admin: 06/07/25 11:59 Dose: 125 mg
[2025-06-07 11:12] LABS: Hematocrit (blood only) 25.8 % (37.0-47.0); Hemoglobin 8.4 g/dL (12.0-16.0)
--- NOTE | 2025-06-07 12:47 | Electrocardiogram Report ---
Test Reason : Blood Pressure : */* mmHG Vent. Rate : 134 BPM Atrial Rate : 134 BPM P-R Int : 100 ms QRS Dur : 66 ms QT Int : 284 ms P-R-T Axes : 64 59 55 degrees QTcB Int : 424 ms Probably Sinus tachycardia with short TN Otherwise normal ECG No previous ECGs available Confirmed by Leandro Valentino ([id number]) on 06/07/2025 12:47:16 PM Referred By: REFERRED SELF Confirmed By: Leandro Valentino
--- NOTE | 2025-06-07 12:55 | Electrocardiogram Report ---
Test Reason : Blood Pressure : */* mmHG Vent. Rate : 115 BPM Atrial Rate : 115 BPM P-R Int : 100 ms QRS Dur : 70 ms QT Int : 310 ms P-R-T Axes : 50 61 61 degrees QTcB Int : 428 ms Sinus tachycardia Nonspecific ST abnormality Otherwise normal ECG When compared with ECG of 06-Jun-2025 17:53, No significant change was found Confirmed by Leandro Valentino ([id number]) on 06/07/2025 12:55:30 PM Referred By: REFERRED SELF Confirmed By: Leandro Valentino
--- NOTE | 2025-06-07 13:42 | Gastrointestinal Consultation ---
<Statement entered by Yfn Mcdonald MD - 06/07/25 17:33> ATTENDING ADDENDUM The patient was seen and evaluated. Hospital labs, data, records and imaging reviewed at length. The case was discussed with the GI PA and I agree with her assessment and plan as outlined above. The patient's clinical presentation is highly suspicious for severe ulcerative colitis. It is perplexing that recent colonoscopy was unrevealing but in light of CAT scan imaging as well as clinical features of her presentation this likely represents left-sided ulcerative colitis until proven otherwise. A colonoscopy will be performed 06/08/2025 for more definitive diagnosis. Further recommendations to follow thereafter with respect to appropriate therapy. Thank you for the courtesy of this consultation Date of Consultation June 07, 2025 Assessment & Plan (1) Abnormal finding on CT scan: (2) Rectal bleeding: Plan -Clear liquids today -Keep NPO after midnight except for bowel prep -Colonoscopy on 06/08/25 for further evaluation -Continue to monitor H/H History of Present Illness Reason for Consultation: Bloody Stools, Colitis Attending Physician: Deondre Anna MD History of Present Illness Patient is a 45 yo female who presents for rectal bleeding. Patient notes that she initially began with abdominal pain and rectal bleeding months ago. She had a colonoscopy at [facility] in [place], [place]. I do not have a result of this, but she tells me that she had a polyp. She notes that after the colonoscopy, she had worsening rectal bleeding. She returned to several different local ERs in her area and reportedly had CT scans that showed left sided colitis. She notes that there were no findings on the CT scans suggestive of diverticulitis, but notes her PCP did treat her empirically for diverticulitis. She notes ongoing constipation issues. She has lower abdominal pain. She notes her rectal bleeding increased in volume and this prompted ED evaluation again. In our ED, a CT scan suggested severe left sided colitis. Her H/H is currently 8.2/25.8. She has no history of anemia previously but has recently been taking Ferrous sulfate. There is no clear family history of IBD, but father reports that there may be a history of GI malignancy but not in first degree relatives. She has been given Prednisone by her PCP without resolution of her symptoms. Allergies Allergy/AdvReac Type Severity Reaction Status Date / Time No Known Allergies Allergy Unverified 06/06/25 21:55 Home Medications Medication Instructions Recorded Confirmed Type ferrous sulfate 325 mg (65 mg 325 mg PO HS 06/06/25 06/06/25 History iron) tablet ondansetron 4 mg disintegrating 4 mg PO Q6 PRN Nausea And Vomiting 06/06/25 06/06/25 History tablet prednisone 10 mg tablets in a dose 10 mg PO UD 06/06/25 06/06/25 History pack promethazine 12.5 mg tablet 12.5 mg PO Q6 PRN Nausea 06/06/25 06/06/25 History quetiapine 25 mg tablet 25 mg PO HS 06/06/25 06/06/25 History quetiapine 50 mg tablet 50 mg PO HS 06/06/25 06/06/25 History Patient History Medical History (Updated 06/07/25 @ 13:47 by Shannon Mckee PA-C) Anxiety Surgical History History of colonoscopy Social History Smoking Status: Never smoker Hx Alcohol Use: No Hx Substance Use: No Preferred Language: Finnish Communication Ability: Effective 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 Beliefs That Will Affect Care: None Current Living Situation: Family Current Living Situation Comment: lives w/ 2 school age children Other Information That Helps Us Care for You: No Feels Safe at Home: Yes Safety Concerns: Feels Safe At This Time Assistive Devices: None Review of Systems Gastrointestinal: + abdominal pain, + constipation and + b lood in stools Physical Exam Constitutional: well developed Respiratory: normal respiratory effort Gastrointestinal (Abdomen): normal bowel sounds, soft, nontender, no hepatosplenomegaly Psychiatric: Orientation: alert and oriented x 3 Results & Data Vital Signs (Past 12 Hours) Vital Signs Temp Pulse Pulse Resp BP BP Pulse Ox 06/07/25 12:43 36.7 C 113 H 17 101/71 96 06/07/25 08:58 36.7 C 122 H 18 101/71 99 06/07/25 07:21 120 H 06/07/25 02:51 124 H 06/07/25 02:35 36.7 C 136 H 18 108/67 98 06/07/25 02:29 128 H 16 106/75 98 06/07/25 01:19 126 H O2 Del Method 06/07/25 12:43 Room Air 06/07/25 08:58 Room Air 06/07/25 07:21 06/07/25 02:51 06/07/25 02:35 Room Air 06/07/25 02:29 Room Air 06/07/25 01:19 PG Care Time/CCT Total # of Minutes Spent Total Time Spent with Patient: Total time spent is greater than 50% in coordination of care (as documented) at patient's floor/unit and/or counseling patient: Coding Level of Care Code 29853 IN/OBS CONSULT LVL 4,60M Diagnoses Abnormal finding on CT scan R93.89 Rectal bleeding K62.5
[2025-06-07] MEDS ORDERED: POLYETHYLENE (MIRALAX) 17 GM PACK PO ONE (16:38)
[2025-06-07 17:10] LABS: Hematocrit (blood only) 24.7 % (37.0-47.0); Hemoglobin 7.7 g/dL (12.0-16.0)
[2025-06-07] MEDS ORDERED: LAVAGE SOLUTION 4000ML PO SCH (18:00)
[2025-06-07] MEDS: POLYETHYLENE (MIRALAX) 17 GM PACK PO ONE (18:19)
[2025-06-07] MEDS: POTASSIUM CHLORIDE / WTR 10 MEQ/100 ML PLCT IV SCH (18:31)
[2025-06-07] MEDS: PANTOprazole 40 MG/10 ML SYR IV SCH (19:49)
[2025-06-07] MEDS ORDERED: FERROUS SULFATE 325 MG TAB PO SCH (21:00)
[2025-06-08 01:19] LABS: Hematocrit (blood only) 26.0 % (37.0-47.0); Hemoglobin 8.1 g/dL (12.0-16.0)
[2025-06-08 07:43] LABS: Hematocrit (blood only) 20.9 % (37.0-47.0); Hemoglobin 6.7 g/dL (12.0-16.0); Mean Corpuscular Hemoglobin 31.2 pg (25.0-34.0); Mean Corpuscular Volume 97.2 fL (80.0-100.0); Platelet Count 427 K/uL (130-400); RDW Standard Deviation 54.2 fL (36.4-46.3); Red Blood Count 2.15 M/uL (4.20-5.40); White Blood Count 7.10 K/ul (4.8-10.8)
[2025-06-08 07:44] LABS: Anion Gap 4.0 (3-11); Blood Urea Nitrogen 12.0 mg/dl (6-23); Calcium 7.0 mg/dl (8.6-10.3); Carbon Dioxide 25.0 mmol/L (21-32); Chloride 106.0 mmol/L (98-107); Creatinine Clr Calc Pharmacy 193.7 ml/min; Glucose 113.0 mg/dl (70-99(Fasting)); Magnesium 2.0 mg/dl (1.7-2.4); Potassium 3.5 mmol/L (3.5-5.1); Sodium 135.0 mmol/L (136-145)
[2025-06-08] MEDS ORDERED: SODIUM CHLORIDE 0.9% 100 ML IV PRN (07:46)
[2025-06-08] MEDS: diphenhydrAMINE 50 MG/ML VIAL IV SCH (09:25)
[2025-06-08] MEDS: ACETAMINOPHEN 1,000 MG/100 ML VIAL IV PRN (09:25)
--- NOTE | 2025-06-08 09:27 | Gastroenterology Progress Note ---
Date of Service June 08, 2025 Assessment & Plan (1) Rectal bleeding: Plan: 45 year old female with history of anxiety admitted w abd pain, bloody stools, CTAP w/ severe colitis with intense long-segment inflammation of the left hemicolon and the rectosigmoid. Stool studies reveal a positive c.diff gene but negative toxin, negative PCR and pending calprotectin. There is report of a recent colonoscopy in February which was unremarkable w/ the exception of a polyp. NPO for colonoscopy today Trend H&H Monitor and document GI output Transfuse PRN per primary team We appreciate assistance in the management of any serological abnormality and corrections to include: hemoglobin >7, INR <2, platelets >50,000, potassium levels >3.5 but <5.3, and sodium levels within 5 points of the reference range prior to endoscopic evaluation. Admission and Anticipated Discharge Date Admission Date: June 07, 2025 Subjective NPO for colonoscopy. Tolerated bowel prep. Loose stools, some blood. No abd pain. No nausea/vomiting. No fever, chills, CP, SOB. HGB 6.7 w/ anticipation of 1 unit RBCs this AM. Review of Systems Review of Systems: All other findings negative except as noted in HPI. Physical Exam Constitutional: WD/WN, vitals as above Respiratory: normal respiratory effort, lungs clear to auscultation Cardiovascular: RRR, no murmur, no edema Gastrointestinal (Abdomen): normal bowel sounds, soft, nontender, no hepatosplenomegaly Skin: no rashes, warm and dry Results & Data Results & Data Vital Signs (Past 12 Hours) Vital Signs Temp Pulse Pulse Pulse Resp BP Pulse Ox 06/08/25 07:19 98.8 F 122 H 18 100/69 96 06/08/25 06:45 125 H 06/08/25 03:09 98.8 F 121 H 16 106/72 98 06/07/25 23:15 98.2 F 134 H 20 107/75 100 06/07/25 21:35 132 H O2 Del Method 06/08/25 07:19 Room Air 06/08/25 06:45 06/08/25 03:09 Room Air 06/07/25 23:15 Room Air 06/07/25 21:35 Laboratory Results 06/08/25 06/08/25 06/08/25 Range/Units 08:14 06:58 00:53 WBC 7.10 (4.8-10.8) K/ul RBC 2.15 L (4.20-5.40) M/uL Hgb 6.7 L* 8.1 L (12.0-16.0) g/dL Hct 20.9 L* 26.0 L (37.0-47.0) % MCV 97.2 (80.0-100.0) fL MCH 31.2 (25.0-34.0) pg MCHC 32.1 (32.0-36.0) g/dL RDW Std Deviation 54.2 H (36.4-46.3) fL RDW Coeff of Pancho 15.6 H (11.5-14.5) % Plt Count 427 H (130-400) K/uL MPV 8.2 L (9.4-12.4) fL Absolute Nucleated RBC 0.09 (0.00-0.12) K/uL Nucleated RBC % (auto) 1.3 % Sodium 135 L (136-145) mmol/L Potassium 3.5 (3.5-5.1) mmol/L Chloride 106 (98-107) mmol/L Carbon Dioxide 25 (21-32) mmol/L Anion Gap 4 (3-11) BUN 12 (6-23) mg/dl Creatinine 0.32 L (0.6-1.2) mg/dl Est Cr Clr Drug Dosing 193.7 ml/min eGFR 131.99 BUN/Creatinine Ratio 37.5 H (10-20) Glucose 113 H (70-99(Fasting)) mg/dl Calcium 7.0 L (8.6-10.3) mg/dl Ionized Calcium 1.09 L (1.12-1.32) mmol/L Phosphorus 2.1 L D (2.5-4.9) mg/dl Magnesium 2.0 (1.7-2.4) mg/dl 25-OH Vitamin D Total 12.7 L (30-100) ng/ml Blood Type A Positive Blood Type Recheck A Positive Antibody Screen NEGATIVE Crossmatch See Detail 06/07/25 06/07/25 Range/Units 16:47 10:40 WBC (4.8-10.8) K/ul RBC (4.20-5.40) M/uL Hgb 7.7 L 8.4 L (12.0-16.0) g/dL Hct 24.7 L 25.8 L (37.0-47.0) % MCV (80.0-100.0) fL MCH (25.0-34.0) pg MCHC (32.0-36.0) g/dL RDW Std Deviation (36.4-46.3) fL RDW Coeff of Pancho (11.5-14.5) % Plt Count (130-400) K/uL MPV (9.4-12.4) fL Absolute Nucleated RBC (0.00-0.12) K/uL Nucleated RBC % (auto) % Sodium (136-145) mmol/L Potassium (3.5-5.1) mmol/L Chloride (98-107) mmol/L Carbon Dioxide (21-32) mmol/L Anion Gap (3-11) BUN (6-23) mg/dl Creatinine (0.6-1.2) mg/dl Est Cr Clr Drug Dosing ml/min eGFR BUN/Creatinine Ratio (10-20) Glucose (70-99(Fasting)) mg/dl Calcium (8.6-10.3) mg/dl Ionized Calcium (1.12-1.32) mmol/L Phosphorus (2.5-4.9) mg/dl Magnesium (1.7-2.4) mg/dl 25-OH Vitamin D Total (30-100) ng/ml Blood Type Blood Type Recheck Antibody Screen Crossmatch PG Care Time/CCT Total # of Minutes Spent Total Time Spent with Patient: Total time spent is greater than 50% in coordination of care (as documented) at patient's floor/unit and/or counseling patient: Coding Level of Care Code None Diagnoses Rectal bleeding K62.5
[2025-06-08] MEDS: POTASSIUM PHOS 3 MMOL/1 ML INFUSION IV STA (09:40)
[2025-06-08] MEDS: POTASSIUM PHOSPHATE 9 MMOL in SODIUM CHLORIDE 0.9% 250 ML IV ONE (09:40)
--- NOTE | 2025-06-08 12:36 | Anesthesiology Consultation ---
Date of Service June 08, 2025 Assessment & Plan Chart Review Chart Review: Acceptable Risk for Surgery Consults Requested none ASA ASA2 Proposed Anesthesia Anesthesia Type: MAC Risk / Benefits Reviewed With: PT / POA / Parent / Guardian, Accepts Plan and Informed Consent Obtained History Surgery Operation Date: 06/08/25 16:45 Proposed Procedures p Colonoscopy Tamara - Yfn Mcdonald MD Height/Weight Height: 5 ft 2 in Weight: 61.6 kg Allergies Allergy/AdvReac Type Severity Reaction Status Date / Time No Known Allergies Allergy Unverified 06/06/25 21:55 Medications Home Medications Medication Instructions Recorded Confirmed Last Taken ferrous sulfate 325 mg (65 mg 325 mg PO HS 06/06/25 06/06/25 06/05/25 iron) tablet ondansetron 4 mg disintegrating 4 mg PO Q6 PRN Nausea And Vomiting 06/06/25 06/06/25 06/06/25 tablet prednisone 10 mg tablets in a dose 10 mg PO UD 06/06/25 06/06/25 06/06/25 pack 1 dose of 10mg left promethazine 12.5 mg tablet 12.5 mg PO Q6 PRN Nausea 06/06/25 06/06/25 Unknown quetiapine 25 mg tablet 25 mg PO HS 06/06/25 06/06/25 06/05/25 quetiapine 50 mg tablet 50 mg PO HS 06/06/25 06/06/25 06/05/25 Active Medications Generic Name Dose Route Start Last Admin Trade Name Freq PRN Reason Stop Dose Admin Hydromorphone HCl 0.5 mg 06/07/25 02:50 06/08/25 05:18 Hydromorphone Inj 0.5 Mg/0.5 Ml Syr IV 06/21/25 02:49 0.5 mg Q4H PRN Administration Severe Pain (Scale 7, 8, 9,10) Sodium Chloride 1,000 mls @ 150 mls/hr 06/07/25 02:50 06/08/25 14:05 Nss IV 06/10/25 02:49 0 mls/hr .Q6H40M YESSICA Infusion Acetaminophen 1,000 mg in 100 mls @ 400 mls/hr 06/07/25 02:50 06/08/25 09:40 Ofirmev IV 06/10/25 02:49 Infused Q8H PRN Infusion Pain or Fever Pantoprazole Sodium 40 mg in 10 mls @ 5 mls/min 06/07/25 21:00 06/08/25 08:45 Protonix IV 07/07/25 20:59 5 mls/min BID YESSICA Administration Ondansetron HCl 4 mg 06/07/25 02:50 06/08/25 00:25 Ondansetron Inj 2 Mg/Ml 2 Ml Vial IV 07/07/25 02:49 4 mg Q6H PRN Administration Nausea Quetiapine Fumarate 75 mg 06/07/25 21:00 06/07/25 19:49 Quetiapine Fumarate 25 Mg Tablet PO 07/07/25 20:59 75 mg HS YESSICA Administration Vancomycin HCl 125 mg 06/07/25 06:00 06/08/25 12:30 Vancomycin Hcl 125 Mg Cap PO 06/17/25 05:59 Not Given Q6 YESSICA NPO Date Last Intake of Fluids: 06/08/25 Time Last Intake of Fluids: 09:00 Date Last Intake of Solids: 06/07/25 Time Last Intake of Solids: 17:00 Past Medical History Medical History (Updated 06/08/25 @ 12:32 by Jacqui Johnson DO) Hx of colonic polyp Anxiety Exercise / Class Metabolic Activity II 4-5 Yardwork/Stairs/Walk up hill Past Surgical History Surgical History (Updated 06/08/25 @ 12:32 by Jacqui Johnson DO) Hx of tooth extraction History of colonoscopy Past Anesthesia History No Hx of Anesthesia Complications and No Family Hx of Anesthesia Complications History of PONV No Hx of PONV and No Hx of Motion Sickness Social History Smoking Status: Never smoker Hx Alcohol Use: No Hx Substance Use: No Physical Exam Vital Signs Last Vital Signs Temp 37 C 06/08/25 14:27 Pulse 96 H 06/08/25 14:27 Resp 16 06/08/25 14:27 BP 102/71 06/08/25 14:27 Pulse Ox 99 06/08/25 14:27 O2 Del Method Room Air 06/08/25 14:27 ENMT Mouth: no TMJ abnormality Thyromental Distance: > or= 3.5 Finger Breadths Mallampati Class: II Neck normal visual inspection and trachea midline; neck extension not limited Respiratory normal respiratory effort Auscultation: lungs clear to auscultation bilaterally Cardiovascular Rate/Rhythm: regular rate and regular rhythm Heart Sounds: no murmur Musculoskeletal Spine: normal cervical ROM Extremities: full ROM of extremities Neurologic moves all extremities Psychiatric Orientation: alert and oriented x 3 Testing Laboratory Results 06/08/25 14:08 06/08/25 06:58 Urine Color Yellow 06/06/25 19:30 Urine Appearance Clear (Clear) 06/06/25 19:30 Urine pH 6.5 (4.5-7.5) 06/06/25 19:30 Ur Specific [place] 1.020 (1.000-1.030) 06/06/25 19:30 Urine Protein Negative (Negative) 06/06/25 19:30 Urine Glucose (UA) Negative (Negative) 06/06/25 19: Urine Ketones Negative (Negative) 06/06/25 19: Urine Nitrite Negative (Negative) 06/06/25 19:30 Ur Leukocyte Esterase Trace (Negative) H 06/06/25 19:30 Urine WBC (Auto) 0-5 /hpf (0-5) 06/06/25 19:30 Urine RBC (Auto) 0-2 /hpf (0-2) 06/06/25 19:30 U Hyaline Cast (Auto) 0-2 /lpf (0-2) 06/06/25 19:30 U Epithel Cells (Auto) 3-5 /hpf (0-2) H 06/06/25 19:30 Urine Bacteria (Auto) None Seen (None Seen) 06/06/25 19:30 Blood Type A Positive 06/08/25 08:14 Antibody Screen NEGATIVE 06/08/25 08:14 labs noted, receiving 1 unit prbc currently Electrocardiogram Date: 06/07/25 Findings: + ST @ (115bpm) Other Testing CT abd/pelvis noted
--- NOTE | 2025-06-08 13:24 | Hospitalist Progress Note ---
Date of Service June 08, 2025 Assessment & Plan (1) Colitis: (2) Acute blood loss anemia: (3) Iron deficiency anemia: (4) Sinus tachycardia: (5) Hypocalcemia: (6) Abnormal finding on CT scan: (7) Anxiety: Plan 45 year old female with PMH significant for anxiety who presented to the ED on 06/06/2025 with abdominal pain and bloody stools and was found to have severe colitis. Colitis Patient presenting with abdominal pain and bloody stools x2 months Underwent colonoscopy in Sept with internal hemorrhoids visualized and removal of benign polyp per patient and then developed bloody diarrhea afterwards Completed course of antibiotics and steroids without improvement Admitting CTAP revealed severe colitis of left hemicolon and rectosigmoid and mildly edematous pancreas (lipase low) Stool studies positive for C diff gene, negative for toxin-> continue vancomycin Pain control with IV tylenol and dilaudid PRN GI consulted - NPO for colonoscopy today Acute blood loss anemia Iron deficiency anemia Hgb 10.3-> 8.2-> 6.7 today s/p 1 unit PRBCs on 06/08 Multifactorial in setting of OLIVIER and hematochezia Iron, TIBC, transferrin all low despite ferrous sulfate 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 Vitamin B12 and folate normal Continue to trend H&H Urinary retention Informed by nurse that patient unable to void Bladder scan >500cc Straight cath for >700cc Monitor closely and bladder scan PRN Sinus tachycardia HR slightly improved after blood from 115-120s to 100s Likely secondary to acute blood loss anemia and pain EKG revealed sinus tachycardia Troponin and lactate negative x2 Continue IVF Monitor telemetry Hypophosphatemia Phos 2.1 today Repleted Recheck in am Hypocalcemia Vitamin D deficiency Ca 7.0, ionized ca 1.09 Vitamin D 12.7 Start ergocalciferol 1,250mcg weekly after colonoscopy Recommend outpatient recheck of level in 6-[address] finding CTAP revealed 3mm right middle lobe subpleural nodule Recommend CT chest follow up in 3-6 months Anxiety Continue Seroquel DVT Prophylaxis: SCDs due to ABLA Code Status: FULL CODE PCP: Irene Olivas () Disposition: Anticipate dc to home pending colonoscopy results Patient seen in collaboration with Dr. Anna. Please see addendum. I spent a total of 60 minutes coordinating, documenting and providing care for this patient excluding time spent in the performance of separately billed services or time spent by another provider/QHP. Admission and Anticipated Discharge Date Admission Date: June 07, 2025 Supervising Physician Co-Signing Physician Notes Pt seen and examined by me , care coordinated w/ Mamadou Marcus PA-C, pls refer to her note above for further detail. Pt presents with anemia and GI bleed. stool studies posit. for c. diff gene. and she was started on PO vanco on admission. GI was consulted and concern for UC, plan for colonoscopy today. Pt has been tachycardic, receiving IVF. Currently family present at the bedside. Pt is awake, alert, able to provide history. pt also appears very weak and tired. +tachycardic, lungs CTAB, abdomen soft, mildly tender to palp., no LE edema, moves extremities. Current Hgb 6.7, pt persistently tachycardic, discussed blood transfusion with the pt and she is agreeable. Will transfuse 1 unit of pRBC now, plan for colonoscopy later today. Cont. to closely monitor H&H, hemodynamic status. MD Wilfrido Subjective Patient seen resting in bed Reports abdominal pain is controlled with medicine Had about 4 episodes of diarrhea with blood in stool still yesterday Completed colonoscopy prep and stools are mostly clear now Denies dizziness, chest pain, palpitations, SOB, vomiting Review of Systems Review of Systems: All systems reviewed & are unremarkable except as noted in HPI & below Physical Exam Physical Exam: General/Psych: WD/WN, sitting up in bed, NAD, conversing easily Head: normocephalic, atraumatic Eyes: normal inspection, PERRL, conjunctivae pink ENT: external ear and nose normal, oropharynx normal Neck: normal visual inspection, trachea midline Respiratory: normal respiratory effort, lungs clear to auscultation, no wheeze/rales/rhonchi, no accessory muscle use Cardiovascular: tachycardic rate and rhythm, no murmur/rub/gallop Extremities: no cyanosis or clubbing, normal peripheral pulses, no BLE edema Abdomen/GI: active bowel sounds, soft, tender on palpation in lower quadrants Neurologic/MSK: A+Ox3, motor strength 5/5, moves all extremities Skin: no rashes, normal color, warm and dry Results & Data Results & Data Vital Signs (Past 12 Hours) Vital Signs Temp Pulse Pulse Pulse Resp BP BP 06/08/25 12:05 36.9 C 106 H 18 91/67 L 06/08/25 11:05 36.8 C 106 H 16 93/64 L 06/08/25 10:35 36.7 C 116 H 18 95/65 L 06/08/25 10:33 36.7 C 116 H 18 95/65 L 06/08/25 10:20 37.3 C 109 H 17 94/64 L 06/08/25 10:04 37.0 C 125 H 16 98/67 L 06/08/25 07:19 37.1 C 122 H 18 100/69 06/08/25 06:45 125 H 06/08/25 03:09 37.1 C 121 H 16 106/72 Pulse Ox O2 Del Method 06/08/25 12:05 98 06/08/25 11:05 98 06/08/25 10:35 97 06/08/25 10:33 97 06/08/25 10:20 96 06/08/25 10:04 96 06/08/25 07:19 96 Room Air 06/08/25 06:45 06/08/25 03:09 98 Room Air Laboratory Results Short CBC 06/07/25 06/08/25 06/08/25 Range/Units 16:47 00:53 06:58 WBC 7.10 (4.8-10.8) K/ul Hgb 7.7 L 8.1 L 6.7 L* (12.0-16.0) g/dL Hct 24.7 L 26.0 L 20.9 L* (37.0-47.0) % Plt Count 427 H (130-400) K/uL BMP 06/08/25 06:58 Sodium 135 L Potassium 3.5 Chloride 106 Carbon Dioxide 25 BUN 12 Creatinine 0.32 L Glucose 113 H Calcium 7.0 L I have independently reviewed and interpreted patient's labs including CBC, BMP, ionized calcium, mag, phos, vitamin D Medications Administered Current Inpatient Medications Hydromorphone HCl (Hydromorphone Inj 0.5 Mg/0.5 Ml Syr) 0.25 mg IV Q4H PRN PRN Reason: Moderate Pain (Scale 4, 5, 6) Stop: 06/21/25 02:49 Hydromorphone HCl (Hydromorphone Inj 0.5 Mg/0.5 Ml Syr) 0.5 mg IV Q4H PRN PRN Reason: Severe Pain (Scale 7, 8, 9,10) Stop: 06/21/25 02:49 Last Admin: 06/08/25 05:18 Dose: 0.5 mg Sodium Chloride (Nss) 1,000 mls @ 150 mls/hr IV .Q6H40M YESSICA Stop: 06/10/25 02:49 Last Admin: 06/08/25 10:10 Dose: 150 mls/hr Acetaminophen (Ofirmev) 1,000 mg in 100 mls @ 400 mls/hr IV Q8H PRN PRN Reason: Pain or Fever Stop: 06/10/25 02:49 Last Infusion: 06/08/25 09:40 Dose: Infused Pantoprazole Sodium (Protonix) 40 mg in 10 mls @ 5 mls/min IV BID [facility] Stop: 07/07/25 20:59 Last Admin: 06/08/25 08:45 Dose: 5 mls/min Sodium Chloride (Nss) 100 mls @ 15 mls/hr IV .Q6H40M PRN PRN Reason: For Transfusion Duration Stop: 06/08/25 15:47 Ondansetron HCl (Ondansetron Inj 2 Mg/Ml 2 Ml Vial) 4 mg IV Q6H PRN PRN Reason: Nausea Stop: 07/07/25 02:49 Last Admin: 06/08/25 00:25 Dose: 4 mg Quetiapine Fumarate (Quetiapine Fumarate 25 Mg Tablet) 75 mg PO HS [facility] Stop: 07/07/25 20:59 Last Admin: 06/07/25 19:49 Dose: 75 mg Vancomycin HCl (Vancomycin Hcl 125 Mg Cap) 125 mg PO Q6 [facility] Stop: 06/17/25 05:59 Last Admin: 06/08/25 12:30 Dose: Not Given
[2025-06-08 14:31] LABS: Hematocrit (blood only) 28.6 % (37.0-47.0); Hemoglobin 9.1 g/dL (12.0-16.0)
--- NOTE | 2025-06-08 15:20 | Anesthesiology Progress Note ---
Date of Service June 08, 2025 Anesthesia Post Procedure Vital Signs Vital Signs: Temp Pulse Pulse Pulse Resp BP BP 06/08/25 15:09 109 H 16 98/67 L 06/08/25 14:27 37 C 96 H 16 102/71 06/08/25 12:05 36.9 C 106 H 18 91/67 L 06/08/25 11:05 36.8 C 106 H 16 93/64 L 06/08/25 10:35 36.7 C 116 H 18 95/65 L 06/08/25 10:33 36.7 C 116 H 18 95/65 L 06/08/25 10:20 37.3 C 109 H 17 94/64 L 06/08/25 10:04 37.0 C 125 H 16 98/67 L 06/08/25 07:19 37.1 C 122 H 18 06/08/25 06:45 125 H 06/08/25 03:09 37.1 C 121 H 16 06/07/25 23:15 36.8 C 134 H 20 06/07/25 21:35 132 H 06/07/25 19:50 37 C 127 H 20 06/07/25 15:36 36.6 C 118 H BP Pulse Ox O2 Del Method 06/08/25 15:09 99 Room Air 06/08/25 14:27 99 Room Air 06/08/25 12:05 98 06/08/25 11:05 98 06/08/25 10:35 97 06/08/25 10:33 97 06/08/25 10:20 96 06/08/25 10:04 96 06/08/25 07:19 100/69 96 Room Air 06/08/25 06:45 06/08/25 03:09 106/72 98 Room Air 06/07/25 23:15 107/75 100 Room Air 06/07/25 21:35 06/07/25 19:50 117/83 98 Room Air 06/07/25 15:36 99/67 L 99 Room Air Pain Intensity Abdomen: Pain Intensity: 7 Bilateral Lower Back: Pain Intensity: 1 Transfer of Care Handoff Completed per policy Notes Mental Status: alert / awake / arousable Patient Amnestic to Procedure: Yes Nausea / Vomiting: adequately controlled Pain: adequately controlled Airway Patency, RR, SpO2: stable & adequate BP & HR: stable & adequate Hydration State: stable & adequate Anesthetic Complications: no major complications apparent and Pt Satisfied with anesthetic care
--- NOTE | 2025-06-08 15:27 | GI REPORT ---
[facility] Patient: SIERRA FALK : 1980 Sex at : Female Age: 45 Years Procedure: Colonoscopy Date: 06/08/2025 Attending Physician: Yfn Mcdonald MD Referring MD: Deondre Anna Md Indications: - Rectal bleeding - Lower abdominal pain - Abnormal CT of the GI tract - Suspicion of colitis on CT imaging Medications: - See the Anesthesia note for documentation of the administered medications Complications: - No immediate complications. Estimated Blood Loss: - Estimated blood loss was minimal. Procedure: - Prior to the procedure, a History and Physical was performed, and patient medications and allergies were reviewed. The patient's tolerance of previous anesthesia was also reviewed. The risks and benefits of the procedure and the sedation options and risks were discussed with the patient. All questions were answered, and informed consent was obtained. Prior Anticoagulants: The patient has taken no anticoagulant or antiplatelet agents. ASA Grade Assessment: III - A patient with severe systemic disease. After reviewing the risks and benefits, the patient was deemed in satisfactory condition to undergo the procedure. - The pediatric colonoscope was introduced through the anus and advanced to the splenic flexure. - The colonoscopy was performed without difficulty. - The quality of the bowel preparation was adequate. Findings: - Inflammation was found in a continuous and circumferential pattern from the anus to the splenic flexure. This was graded as Flaherty Score 3 (severe, with spontaneous bleeding, ulcerations). This was biopsied with a cold forceps for evaluation of inflammatory bowel disease. Fulminant colitis is seen from the descending colon to the anal verge with diffuse ulceration, inflammatory mass, friability and spontaneous bleeding. Impression: - Severe (Flaherty Score 3) left-sided colitis. Biopsied. - Fulminant colitis is seen from the descending colon to the anal verge with diffuse ulceration, inflammatory mass, friability and spontaneous bleeding. Recommendation: - Await pathology results. - Start Solu-Medrol 30 every 8 - Low fiber diet and full liquid diet. - The patient will most likely require biologic therapy. This unfortunately is not available as an inpatient setting. Hopefully the patient can be transition to oral steroids to allow for close outpatient follow-up and institution of biologic therapy. If patient clinical condition does not improve then colorectal surgery consultation is advised. - QuantiFERON and hepatitis panel will be ordered in anticipation of possible biologic therapy. - Iron repletion, transfusion as needed - Will start mesalamine orally as adjunct of therapy with steroids. Procedure Code(s): - 00375-30, Colonoscopy, flexible; with biopsy, single or multiple Diagnosis Code(s): - K62.5, Hemorrhage of anus and rectum - R10.30, Lower abdominal pain, unspecified - R93.3, Abnormal findings on diagnostic imaging of other parts of digestive tract - K51.50, Left sided colitis without complications CPT(R) - 2023 copyright [employer]. All Rights Reserved. The CPT codes, CCI edits and ICD codes generated are intended as suggestions and were generated based on input data. These codes are preliminary and upon security sme review may be revised to meet current compliance and payer requirements. The provider is responsible for the final determination of appropriate codes, and modifiers. Yfn Mcdonald MD This document has been electronically signed. Note Initiated:06/08/2025 Note Completed:06/08/2025 3:26 PM \\[email or web address]\Provation\Results\LIVE\[id number]
[2025-06-08] MEDS: HYDROmorphone INJ 0.5 MG/0.5 ML SYR IV PRN (15:44)
[2025-06-08] MEDS: LIDOCAINE 2% 2 ML VIAL/AMP(20MG/ML) INFIL ONE ×2 (16:08→16:09)
[2025-06-08] MEDS: PROPOFOL IV EMULSION 10 MG/ML 20 ML VIAL IV ONE ×2 (16:09)
[2025-06-08] MEDS: ERGOCALCIFEROL 1250 MCG (50,000 UNITS) CAP PO SCH (16:30)
[2025-06-08] MEDS: MESALAMINE 800 MG TABCR PO SCH (16:30)
[2025-06-08 17:54] LABS: Hep C Ab Rflx HepCQuant RNA Negative (Negative)
[2025-06-08 23:34] LABS: Hematocrit (blood only) 25.4 % (37.0-47.0); Hemoglobin 8.2 g/dL (12.0-16.0)
--- NOTE | 2025-06-09 08:53 | Hospitalist Progress Note ---
Date of Service June 09, 2025 Assessment & Plan (1) Colitis: (2) Acute blood loss anemia: (3) Iron deficiency anemia: (4) Sinus tachycardia: (5) Hypocalcemia: (6) Abnormal finding on CT scan: (7) Anxiety: Plan 45 year old female with PMH significant for anxiety who presented to the ED on 06/06/2025 with abdominal pain and bloody stools and was found to have severe colitis. Colitis Patient presenting with abdominal pain and bloody stools x2 months Underwent colonoscopy in Sept with internal hemorrhoids visualized and removal of benign polyp per patient and then developed bloody diarrhea afterwards Completed course of antibiotics and steroids without improvement Admitting CTAP revealed severe colitis of left hemicolon and rectosigmoid and mildly edematous pancreas (lipase low) Stool studies positive for C diff gene, negative for toxin-> continue vancomycin Pain under control with IV tylenol and dilaudid PRN s/p colonoscopy on 06/08/2025 revealing severe left sided colitis, fulminant colitis from descending colon to anal verge with diffuse ulceration, inflammatory mass, friability and spontaneous bleeding GI recommendations: -Await pathology/biopsies, calprotectin, TB and hepatitis labs -Solu Medrol q8hr for at least 48 hours (until 06/10 at 1545) -If responding, transition to oral steroids-> see GI note by Ramona Davison on 06/09 for taper instructions -Continue mesalamine tid -Low residue diet -IV iron while inpatient then transition to oral iron at discharge -Trend H&H and transfuse PRN -Appt on 06/18/2025 with [facility] to discuss starting biologic therapy Acute blood loss anemia Iron deficiency anemia Hgb 6.7 s/p 1 unit PRBCs on 06/08-> 9.3 today Multifactorial in setting of OLIVIER and hematochezia Iron, TIBC, transferrin all low despite oral ferrous sulfate [employer] Vitamin B12 and folate normal IV iron while inpatient and transition to PO at discharge Continue to trend H&H Urinary retention-> resolved Straight cath yesterday for scan >500cc Voiding spontaneously today Sinus tachycardia-> improving HR slowly improving Likely secondary to acute blood loss anemia and pain EKG revealed sinus tachycardia Monitor telemetry DC IV fluids and encouraged hydration Hypophosphatemia Phos 3.3 today Replete PRN Hypocalcemia Vitamin D deficiency Ca 7.0, ionized ca 1.09 Vitamin D 12.7 Start ergocalciferol 1,250mcg weekly Recommend outpatient recheck of level in 6-[address] findings 1. CTAP revealed 3mm right middle lobe subpleural nodule -Recommend CT chest follow up in 3-6 months-> instructed patient to discuss with PCP 2. CTAP revealed non obstructing bilateral intrarenal calculi measuring up to 1.1cm in right kidney and 4mm in left kidney without hydronephrosis -Recommend outpatient follow up with Urology for stone removal/stent placement-> referral sent to [facility] Anxiety Continue Seroquel DVT Prophylaxis: SCDs due to ABLA Code Status: FULL CODE PCP: Irene Olivas () Disposition: DC to home when medically stable Patient seen in collaboration with Dr. Anna. Please see addendum. I spent a total of 60 minutes coordinating, documenting and providing care for this patient excluding time spent in the performance of separately billed services or time spent by another provider/QHP. Admission and Anticipated Discharge Date Admission Date: June 07, 2025 Supervising Physician Co-Signing Physician Notes Pt seen and examined by me , care coordinated w/ M. PILO Marcus, pls refer to her note above for further detail. Pt presents with anemia and GI bleed. stool studies obtained on admission posit. for c. diff gene. and she was started on PO vanco on admission. GI was consulted and pt underwent colonoscopy yesterday. Per GI - concerning for ulcerative colitis w/ Severe (Flaherty Score 3) left-sided colitis, fulminant colitis is seen from the descending colon to the anal verge with diffuse ulceration, inflammatory mass, friability and spontaneous bleeding. Pt initially tachycardic, received IVF. Also received 1 unit of pRBC yesterday. Hemodynamics improved. Was started on solumedrol IV by GI and mesalamine. Curr ently family (uncle) present at the bedside. Pt is awake, alert, sitting up in chair, eating soup, overall looking much better and less weak. She is no longer tachycardic. lungs CTAB, abdomen soft, mildly tender to palp., no LE edema, moves extremities. Current Hgb 9.3. Pt also reports she is still having some blood in stool, but it's much less than before. Cont. to closely monitor H&H, and hemodynamic status. MD Wilfrido Subjective Patient seen resting in bed Reports feeling much better today Abdominal pain and nausea is improved One bowel movement since colonoscopy with less amount of blood Denies dizziness, chest pain, SOB, N/V Review of Systems Review of Systems: All systems reviewed & are unremarkable except as noted in HPI & below Physical Exam Physical Exam: General/Psych: WD/WN, sitting up in bed, NAD, conversing easily Head: normocephalic, atraumatic Eyes: normal inspection, PERRL, conjunctivae pink ENT: external ear and nose normal, oropharynx normal Neck: normal visual inspection, trachea midline Respiratory: normal respiratory effort, lungs clear to auscultation, no wheeze/rales/rhonchi, no accessory muscle use Cardiovascular: regular rate and rhythm, no murmur/rub/gallop Extremities: no cyanosis or clubbing, normal peripheral pulses, no BLE edema Abdomen/GI: active bowel sounds, soft, nontender Neurologic/MSK: A+Ox3, motor strength 5/5, moves all extremities Skin: no rashes, normal color, warm and dry Results & Data Results & Data Vital Signs (Past 12 Hours) Vital Signs Temp Pulse Pulse Resp BP Pulse Ox O2 Del Method 06/09/25 07:34 94 H 06/09/25 07:32 36.8 C 91 H 18 101/70 97 Room Air 06/09/25 03:12 36.9 C 96 H 16 103/72 97 Room Air 06/08/25 22:38 36.8 C 109 H 16 101/70 94 Room Air 06/08/25 21:40 108 H Laboratory Results Short CBC 06/08/25 06/09/25 Range/Units 22:54 09:01 WBC 8.59 (4.8-10.8) K/ul Hgb 8.2 L 9.3 L (12.0-16.0) g/dL Hct 25.4 L 29.8 L (37.0-47.0) % Plt Count 456 H (130-400) K/uL BMP 06/09/25 08:20 Sodium 135 L Potassium 3.8 Chloride 103 Carbon Dioxide 23 BUN 8 Creatinine 0.35 L Glucose 99 Calcium 7.6 L I have independently reviewed and interpreted patient's labs including CBC, BMP, mag, phos Medications Administered Current Inpatient Medications Ergocalciferol (Ergocalciferol 1250 Mcg (50,000 Units) Cap) 1,250 mcg PO Q7D@0900 [facility] Stop: 07/08/25 14:59 Last Admin: 06/08/25 16:30 Dose: 1,250 mcg Hydromorphone HCl (Hydromorphone Inj 0.5 Mg/0.5 Ml Syr) 0.25 mg IV Q4H PRN PRN Reason: Moderate Pain (Scale 4, 5, 6) Stop: 06/21/25 02:49 Last Admin: 06/09/25 07:57 Dose: 0.25 mg Hydromorphone HCl (Hydromorphone Inj 0.5 Mg/0.5 Ml Syr) 0.5 mg IV Q4H PRN PRN Reason: Severe Pain (Scale 7, 8, 9,10) Stop: 06/21/25 02:49 Last Admin: 06/09/25 13:57 Dose: 0.5 mg Sodium Chloride (Nss) 1,000 mls @ 150 mls/hr IV .Q6H40M [facility] Stop: 06/10/25 02:49 Last Admin: 06/09/25 04:47 Dose: Not Given Acetaminophen (Ofirmev) 1,000 mg in 100 mls @ 400 mls/hr IV Q8H PRN PRN Reason: Pain or Fever Stop: 06/10/25 02:49 Last Infusion: 06/08/25 09:40 Dose: Infused Pantoprazole Sodium (Protonix) 40 mg in 10 mls @ 5 mls/min IV BID [facility] Stop: 07/07/25 20:59 Last Admin: 06/09/25 07:59 Dose: 5 mls/min Methylprednisolone 30 mg/ (Syringe) 0.48 mls @ 1.5 mls/min IV Q12H [facility] Stop: 07/08/25 15:44 Last Admin: 06/09/25 02:47 Dose: 1.5 mls/min Mesalamine (Mesalamine 800 Mg Tabcr) 800 mg PO TID [facility] Stop: 07/09/25 13:59 Last Admin: 06/09/25 13:57 Dose: 800 mg Ondansetron HCl (Ondansetron Inj 2 Mg/Ml 2 Ml Vial) 4 mg IV Q6H PRN PRN Reason: Nausea Stop: 07/07/25 02:49 Last Admin: 06/08/25 15:45 Dose: 4 mg Quetiapine Fumarate (Quetiapine Fumarate 25 Mg Tablet) 75 mg PO HS YESSICA Stop: 07/07/25 20:59 Last Admin: 06/08/25 20:45 Dose: 75 mg Vancomycin HCl (Vancomycin Hcl 125 Mg Cap) 125 mg PO Q6 YESSICA Stop: 06/17/25 05:59 Last Admin: 06/09/25 11:29 Dose: 125 mg
[2025-06-09 09:23] LABS: Anion Gap 9.0 (3-11); Calcium 7.6 mg/dl (8.6-10.3); Carbon Dioxide 23.0 mmol/L (21-32); Chloride 103.0 mmol/L (98-107); Magnesium 2.1 mg/dl (1.7-2.4); Potassium 3.8 mmol/L (3.5-5.1); Sodium 135.0 mmol/L (136-145)
[2025-06-09 09:27] LABS: Hematocrit (blood only) 29.8 % (37.0-47.0); Hemoglobin 9.3 g/dL (12.0-16.0); Mean Corpuscular Hemoglobin 29.5 pg (25.0-34.0); Mean Corpuscular Volume 94.6 fL (80.0-100.0); Platelet Count 456 K/uL (130-400); RDW Standard Deviation 53.0 fL (36.4-46.3); Red Blood Count 3.15 M/uL (4.20-5.40); White Blood Count 8.59 K/ul (4.8-10.8)
[2025-06-09 09:29] LABS: Blood Urea Nitrogen 8.0 mg/dl (6-23)
[2025-06-09 09:30] LABS: Creatinine Clr Calc Pharmacy 177.1 ml/min; Glucose 99.0 mg/dl (70-99(Fasting))
--- NOTE | 2025-06-09 09:36 | Gastroenterology Progress Note ---
Date of Service June 09, 2025 Assessment & Plan (1) Inflammatory bowel disease: Plan: 45 year old female with history of anxiety admitted w abd pain, bloody stools, CTAP w/ severe colitis with intense long-segment inflammation of the left hemicolon and the rectosigmoid. Stool studies reveal a positive c.diff gene but negative toxin, negative PCR and pending calprotectin. S/P colonoscopy which is concerning for ulcerative colitis w/ Severe (Flaherty Score 3) left-sided colitis, fulminant colitis is seen from the descending colon to the anal verge with diffuse ulceration, inflammatory mass, friability and spontaneous bleeding. Follow biopsies Follow calprotectin Follow quant gold Follow hepatitis panel Continue IV steroids every 8 hours for at least 48 hours If responds, transition to oral steroids w/ a slow tapering course - Prednisone 60 mg once daily x 1 week - Prednisone 55 mg once daily x 1 week - Prednisone 50 mg once daily x 1 week - Prednisone 45 mg once daily x 1 week - Prednisone 40 mg once daily x 1 week - Prednisone 35 mg once daily x 1 week - Prednisone 30 mg once daily x 1 week - Prednisone 25 mg once daily x 1 week - Prednisone 20 mg once daily x 1 week - Prednisone 15 mg once daily x 1 week - Prednisone 10 mg once daily x 1 week - Prednisone 5 mg once daily x 1 week - Stop Continue oral Mesalamine (Delzicol) 800 mg three times daily Low residue diet as tolerated IV iron while admitted and then transition to oral iron Trend H&H Transfuse PRN per primary team OP GI follow up with [facility] in 1-2 weeks, to discuss new start biologic, Eddie Jasso spent a total of 55 minutes on the date of service in review of patient's record, and previously obtained information in person and appropriate medical visit, discussion and education of plan, with patient and/or caregiver, placing orders for tests/referral/procedures as medically necessary and documentation of pertinent clinical information in patient's medical records for their visit today. Admission and Anticipated Discharge Date Admission Date: June 07, 2025 Supervising Physician Co-Signing Physician Notes Pt seen and examined by me , care coordinated w/ M. PILO Marcus, pls refer to her note above for further detail. Pt presents with anemia and GI bleed. stool studies posit. for c. diff gene. and she was started on PO vanco on admission. GI was consulted and concern for UC, plan for colonoscopy today. Pt has been tachycardic, receiving IVF. Currently family present at the bedside. Pt is awake, alert, able to provide history. pt also appears very weak and tired. +tachycardic, lungs CTAB, abdomen soft, mildly tender to palp., no LE edema, moves extremities. Current Hgb 6.7, pt p ersistently tachycardic, discussed blood transfusion with the pt and she is agreeable. Will transfuse 1 unit of pRBC now, plan for colonoscopy later today. Cont. to closely monitor H&H, hemodynamic status. MD Wilfrido Subjective Pt was seen and evaluated, feeling improved. Mild abd pain. Less bleeding since colonoscopy. One BM since colonoscopy yesterday. No fever, chills, CP, SOB. Calprotectin pending Pathology pending Colonoscopy 2024: - Severe (Flaherty Score 3) left-sided colitis. Biopsied. - Fulminant colitis is seen from the descending colon to the anal verge with diffuse ulceration, inflammatory mass, friability and spontaneous bleeding. Review of Systems Review of Systems: All other findings negative except as noted in HPI. Physical Exam 2 Constitutional: WD/WN, vitals as above Respiratory: normal respiratory effort, lungs clear to auscultation Cardiovascular: RRR, no murmur, no edema Gastrointestinal (Abdomen): normal bowel sounds, soft, nontender, no hepatosplenomegaly Skin: no rashes, warm and dry Results & Data Results & Data Vital Signs (Past 12 Hours) Vital Signs Temp Pulse Pulse Resp BP Pulse Ox O2 Del Method 06/09/25 07:34 94 H 06/09/25 07:32 98.2 F 91 H 18 101/70 97 Room Air 06/09/25 03:12 98.4 F 96 H 16 103/72 97 Room Air 06/08/25 22:38 98.2 F 109 H 16 101/70 94 Room Air 06/08/25 21:40 108 H Laboratory Results 06/09/25 06/09/25 06/08/25 Range/Units 09:01 08:20 22:54 WBC 8.59 (4.8-10.8) K/ul RBC 3.15 L (4.20-5.40) M/uL Hgb 9.3 L 8.2 L (12.0-16.0) g/dL Hct 29.8 L 25.4 L (37.0-47.0) % MCV 94.6 (80.0-100.0) fL MCH 29.5 (25.0-34.0) pg MCHC 31.2 L (32.0-36.0) g/dL RDW Std Deviation 53.0 H (36.4-46.3) fL RDW Coeff of Pancho 15.5 H (11.5-14.5) % Plt Count 456 H (130-400) K/uL MPV 8.1 L (9.4-12.4) fL Absolute Nucleated RBC 0.04 (0.00-0.12) K/uL Nucleated RBC % (auto) 0.5 % Sodium 135 L (136-145) mmol/L Potassium 3.8 (3.5-5.1) mmol/L Chloride 103 (98-107) mmol/L Carbon Dioxide 23 (21-32) mmol/L Anion Gap 9 (3-11) BUN Pending Creatinine Pending Est Cr Clr Drug Dosing Pending eGFR Pending BUN/Creatinine Ratio Pending Glucose Pending Calcium 7.6 L (8.6-10.3) mg/dl Phosphorus Pending Magnesium 2.1 (1.7-2.4) mg/dl Hepatitis A Ab Total Pending Hep Bs Antibody Hep Bs Antibody, Quant (>or=10mIU/mL Immune) mIU/mL Hepatitis C Antibody (Negative) TB Test (QFT) Nil Pending TB Test (QFT) Mitogen Pending TB Test (QFT) Ag 1 Pending TB Test (QFT) Ag 2 Pending Blood Type Antibody Screen Crossmatch 06/08/25 06/08/25 06/06/25 Range/Units 14:08 08:14 18:02 WBC (4.8-10.8) K/ul RBC (4.20-5.40) M/uL Hgb 9.1 L (12.0-16.0) g/dL Hct 28.6 L (37.0-47.0) % MCV (80.0-100.0) fL MCH (25.0-34.0) pg MCHC (32.0-36.0) g/dL RDW Std Deviation (36.4-46.3) fL RDW Coeff of Pancho (11.5-14.5) % Plt Count (130-400) K/uL MPV (9.4-12.4) fL Absolute Nucleated RBC (0.00-0.12) K/uL Nucleated RBC % (auto) % Sodium (136-145) mmol/L Potassium (3.5-5.1) mmol/L Chloride (98-107) mmol/L Carbon Dioxide (21-32) mmol/L Anion Gap (3-11) BUN Creatinine Est Cr Clr Drug Dosing eGFR BUN/Creatinine Ratio Glucose Calcium (8.6-10.3) mg/dl Phosphorus Magnesium (1.7-2.4) mg/dl Hepatitis A Ab Total Hep Bs Antibody Immune Hep Bs Antibody, Quant > 500.00 (>or=10mIU/mL Immune) mIU/mL Hepatitis C Antibody Negative (Negative) TB Test (QFT) Nil TB Test (QFT) Mitogen TB Test (QFT) Ag 1 TB Test (QFT) Ag 2 Blood Type A Positive Antibody Screen NEGATIVE Crossmatch See Detail PG Care Time/CCT Total # of Minutes Spent Total Time Spent with Patient: Total time spent is greater than 50% in coordination of care (as documented) at patient's floor/unit and/or counseling patient: Coding Level of Care Code 69860 SUB INP/OBS CARE 3/50MIN Diagnoses Inflammatory bowel disease K52.9
[2025-06-09] MEDS: MESALAMINE 800 MG TABCR PO SCH (13:57)
[2025-06-09] MEDS: IRON SUCROSE 200 MG in SODIUM CHLORIDE 0.9% 100 ML IV SCH (16:22)
[2025-06-09] MEDS: SIMETHICONE 80 MG CHEW PO ONE (20:58)
[2025-06-10] MEDS: SIMETHICONE 80 MG CHEW PO PRN (05:42)
[2025-06-10 07:04] LABS: Hematocrit (blood only) 25.4 % (37.0-47.0); Hemoglobin 8.2 g/dL (12.0-16.0); Mean Corpuscular Hemoglobin 30.4 pg (25.0-34.0); Mean Corpuscular Volume 94.1 fL (80.0-100.0); Platelet Count 397 K/uL (130-400); RDW Standard Deviation 51.8 fL (36.4-46.3); Red Blood Count 2.70 M/uL (4.20-5.40); White Blood Count 7.23 K/ul (4.8-10.8)
[2025-06-10 07:31] LABS: Anion Gap 8.0 (3-11); Blood Urea Nitrogen 9.0 mg/dl (6-23); Calcium 7.5 mg/dl (8.6-10.3); Carbon Dioxide 26.0 mmol/L (21-32); Chloride 102.0 mmol/L (98-107); Creatinine Clr Calc Pharmacy 177.1 ml/min; Glucose 170.0 mg/dl (70-99(Fasting)); Magnesium 2.2 mg/dl (1.7-2.4); Potassium 3.8 mmol/L (3.5-5.1); Sodium 136.0 mmol/L (136-145)
[2025-06-10 09:05] LABS: Quantiferon TB1 0.056 IU/mL; Quantiferon TB2 0.068 IU/mL
--- NOTE | 2025-06-10 09:58 | Hospitalist Progress Note ---
<Statement entered by Julio Cesar Nunez DO - 06/10/25 14:35> patient seen and examined Improving, albeit slowly with IV steroids Continue steroids until there is further improvement in bowel frequency, consistency and blood HGb down today, rehceck in AM Acute blood loss anemia secondary Bleeding from suspected UC flare Date of Service June 10, 2025 Assessment & Plan (1) Colitis: (2) Acute blood loss anemia: (3) Iron deficiency anemia: (4) Sinus tachycardia: (5) Hypocalcemia: (6) Abnormal finding on CT scan: (7) Anxiety: Plan 45 year old female with PMH significant for anxiety who presented to the ED on 06/06/2025 with abdominal pain and bloody stools and was found to have severe colitis. Colitis Patient presenting with abdominal pain and bloody stools x2 months Underwent colonoscopy in [place] with internal hemorrhoids visualized and removal of benign polyp per patient and then developed bloody diarrhea afterwards; Completed course of antibiotics and steroids without improvement Admitting CTAP revealed severe colitis of left hemicolon and rectosigmoid and mildly edematous pancreas (lipase low)-> Underwent colonoscopy on 06/08/2025 revealing severe left sided colitis, fulminant colitis from descending colon to anal verge with diffuse ulceration, inflammatory mass, friability and spontaneous bleeding Stool studies positive for C diff gene, negative for toxin-> continue vancomycin Pain under control with IV tylenol and dilaudid PRN GI consult with following recommendations: -Await pathology/biopsies, calprotectin, TB and hepatitis labs -Solu Medrol q8hr for at least 48 hours (until 06/10 at 1545) -If responding, transition to oral steroids-> see GI note by Ramona Davison on 06/09 for taper instructions -Continue mesalamine tid -Low residue diet -IV iron while inpatient then transition to oral iron at discharge -Trend H&H and transfuse PRN (see below) -Appt on 06/18/2025 with [facility] to discuss starting biologic therapy Acute blood loss anemia Iron deficiency anemia Hgb 6.7 s/p 1 unit PRBCs on 06/08-> 9.3-> 8.2 today; will need Hgb stabilized for d/c poss tomorrow Multifactorial in setting of OLIVIER and hematochezia Iron, TIBC, transferrin all low despite oral ferrous sulfate [employer] Vitamin B12 and folate normal IV iron while inpatient and transition to PO at discharge Continue to trend H&H Urinary retention-> resolved Straight cath yesterday for scan >500cc Voiding spontaneously today; no urinary symptoms Sinus tachycardia-> improving HR slowly improving Likely secondary to acute blood loss anemia and pain EKG revealed sinus tachycardia Monitor telemetry DC IV fluids and encouraged hydration Hypophosphatemia Phos 2.4 today; asymptomatic and replaced with KPhos 6 mmol today Replete PRN Hypocalcemia Vitamin D deficiency Ca 7.0, ionized ca 1.09 Vitamin D 12.7 Start ergocalciferol 1,250mcg weekly Recommend outpatient recheck of level in 6-[address] findings 1. CTAP revealed 3mm right middle lobe subpleural nodule -Recommend CT chest follow up in 3-6 months-> instructed patient to discuss with PCP 2. CTAP revealed non obstructing bilateral intrarenal calculi measuring up to 1.1cm in right kidney and 4mm in left kidney without hydronephrosis -Recommend outpatient follow up with Urology for stone removal/stent placement-> referral sent to [place] [facility] Anxiety Continue Seroquel DVT Prophylaxis: SCDs due to ABLA Code Status: FULL CODE PCP: Irene Olivas () Disposition: DC to home when medically stable Patient seen in collaboration with Dr. Nunez. Please see addendum. I spent a total of 35 minutes coordinating, documenting and providing care for this patient excluding time spent in the performance of separately billed services or time spent by another provider/QHP. Admission and Anticipated Discharge Date Admission Date: June 07, 2025 Subjective Patient seen and examined at bedside. Complaining of mild RLQ pain, manageable with current pain meds. Now tolerating small meals. Continues to have "trickling" of bloody diarrhea, but improved from admission. Denies headache, chest pain, shortness of breath, numbness or tingling, weakness, vomiting, skin changes. Review of Systems Review of Systems: All systems reviewed & are unremarkable except as noted in Subjective Physical Exam Physical Exam: VITALS: Reviewed. WEIGHT/BMI reviewed. GEN: Healthy appearing, well-developed, NAD. PSYCH: Good Judgment. AOx3. Normal memory, mood, and affect. HEENT -Head: NC/AT; -Eyes: PERRL, EOMI. No discharge or redn ess; -Ears: External ears are normal. -Nose: Normal nares. -Mouth and throat: MMM. Normal gums, muc marcella, palate,. Good dentition. NECK: Supple, with no masses. CV: RRR, no m/r/g. LUNGS: CTAB, no w/r/c. ABD: Soft, NT/ND, hyperactive BS, no masses or organomegaly. : N/A SKIN: Warm, well perfused. No skin rashes or abnormal lesions. MSK: No deformities, Normal gait. EXT: No clubbing, cyanosis, or edema. NEURO: Ambulating with no limitations. Normal muscle strength and tone. No focal deficits. Results & Data Results & Data Vital Signs (Past 12 Hours) Vital Signs Temp Pulse Resp BP BP Pulse Ox O2 Del Method 06/10/25 07:29 36.9 C 84 16 100/71 99 Room Air 06/10/25 03:55 36.6 C 87 16 101/68 97 Room Air 06/09/25 23:34 36.8 C 90 18 102/71 96 Room Air Laboratory Results Short CBC 06/10/25 Range/Units 06:06 WBC 7.23 (4.8-10.8) K/ul Hgb 8.2 L (12.0-16.0) g/dL Hct 25.4 L (37.0-47.0) % Plt Count 397 (130-400) K/uL [facility] 06/10/25 06:06 Sodium 136 Potassium 3.8 Chloride 102 Carbon Dioxide 26 BUN 9 Creatinine 0.35 L Glucose 170 H Calcium 7.5 L
[2025-06-10] MEDS ORDERED: POTASSIUM PHOS 3 MMOL/1 ML INFUSION IV ONE (10:20)
[2025-06-10] MEDS: POTASSIUM PHOSPHATE 6 MMOL in SODIUM CHLORIDE 0.9% 100 ML IV ONE (10:54)
[2025-06-11 06:56] LABS: Hematocrit (blood only) 23.4 % (37.0-47.0); Hemoglobin 7.7 g/dL (12.0-16.0); Mean Corpuscular Hemoglobin 31.4 pg (25.0-34.0); Mean Corpuscular Volume 95.5 fL (80.0-100.0); Platelet Count 374 K/uL (130-400); RDW Standard Deviation 51.8 fL (36.4-46.3); Red Blood Count 2.45 M/uL (4.20-5.40); White Blood Count 7.85 K/ul (4.8-10.8)
[2025-06-11 07:17] LABS: Anion Gap 6.0 (3-11); Blood Urea Nitrogen 6.0 mg/dl (6-23); Calcium 7.5 mg/dl (8.6-10.3); Carbon Dioxide 28.0 mmol/L (21-32); Chloride 103.0 mmol/L (98-107); Creatinine Clr Calc Pharmacy 229.6 ml/min; Glucose 111.0 mg/dl (70-99(Fasting)); Magnesium 2.2 mg/dl (1.7-2.4); Potassium 3.8 mmol/L (3.5-5.1); Sodium 137.0 mmol/L (136-145)
--- NOTE | 2025-06-11 07:42 | Hospitalist Progress Note ---
<Statement entered by Julio Cesar Nunez DO - 06/11/25 18:50> Seen and examined Agree with VIJAY I spent a total of 20 minutes coordinating, documenting, and providing care for this patient excluding time spent in the performance of separately billed services. This included personally reviewing all current laboratories and imaging studies, medical reconciliation, outpatient chart review and discussion with specialists Slow improvement. GI switched to prednisone. Follow Hgb. Date of Service June 11, 2025 Assessment & Plan (1) Colitis: (2) Acute blood loss anemia: (3) Iron deficiency anemia: (4) Sinus tachycardia: (5) Hypocalcemia: (6) Abnormal finding on CT scan: (7) Anxiety: Plan 45 year old female with PMH significant for anxiety who presented to the ED on 06/06/2025 with abdominal pain and bloody stools and was found to have severe colitis. Colitis Patient presenting with abdominal pain and bloody stools x2 months Underwent colonoscopy in Sept with internal hemorrhoids visualized and removal of benign polyp per patient and then developed bloody diarrhea afterwards; Completed course of antibiotics and steroids without improvement Admitting CTAP revealed severe colitis of left hemicolon and rectosigmoid and mildly edematous pancreas (lipase low)-> Underwent colonoscopy on 06/08/2025 revealing severe left sided colitis, fulminant colitis from descending colon to anal verge with diffuse ulceration, inflammatory mass, friability and spontaneous bleeding Stool studies positive for C diff gene, negative for toxin-> continue vancomycin Pain under control with IV tylenol PRN GI consult with following recommendations: -Await pathology/biopsies, calprotectin, TB and hepatitis labs -Solu Medrol given today-> will transition to oral Pred 60 mg tomorrow; see GI note by Ramona Davison on 06/09 for taper instructions -Continue mesalamine tid -Low residue diet -Trend H&H and transfuse PRN (see below) -Appt on 06/18/2025 with [facility] to discuss starting biologic therapy Acute blood loss anemia Iron deficiency anemia Hgb 6.7 s/p 1 unit PRBCs on 06/08-> 9.3-> 8.2-> 7.7 today; will need Hgb stabilized for d/c Multifactorial in setting of OLIVIER and hematochezia Iron, TIBC, transferrin all low despite oral ferrous sulfate 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 Vitamin B12 and folate normal Venofer daily and transition to PO at discharge Continue to trend H&H Urinary retention-> resolved Straight cath yesterday for scan >500cc Voiding spontaneously today; no urinary symptoms Sinus tachycardia-> improving HR slowly improving, now high 90's Likely secondary to acute blood loss anemia and pain EKG revealed sinus tachycardia Monitor telemetry Hypophosphatemia Phos 2.4 today; asymptomatic and replaced with KPhos 9 mmol today Replete PRN Hypocalcemia Vitamin D deficiency Ca 7.5, ionized ca 1.09 Vitamin D 12.7 Start ergocalciferol 1,250mcg weekly Recommend outpatient recheck of level in 6-[address] findings 1. CTAP revealed 3mm right middle lobe subpleural nodule -Recommend CT chest follow up in 3-6 months-> instructed patient to discuss with PCP 2. CTAP revealed non obstructing bilateral intrarenal calculi measuring up to 1.1cm in right kidney and 4mm in left kidney without hydronephrosis -Recommend outpatient follow up with Urology for stone removal/stent placement-> referral sent to [facility] Anxiety Continue Seroquel DVT Prophylaxis: SCDs due to ABLA Code Status: FULL CODE PCP: Irene Olivas () Disposition: DC to home when medically stable Patient seen in collaboration with Dr. Nunez. Please see addendum. I spent a total of 35 minutes coordinating, documenting and providing care for this patient excluding time spent in the performance of separately billed services or time spent by another provider/QHP. Admission and Anticipated Discharge Date Admission Date: June 07, 2025 Subjective Patient seen and examined at bedside. Reporting improvement in abdominal pain, now having rectal pain with defecation. Discussed pain is most likely internal and "raw" which is painful with defecation. Reports having 2 episodes yesterday of no blood in the toilet but then bleeding resumed. Tolerating small meals. Spoke with Dr. Mcdonald with GI via [facility] text who recommends transitioned to oral prednisone today. Denies headache, dizziness, chest pain, shortness of breath, wekaness, numbness or tingling, weakness, vomiting, skin changes. Review of Systems Review of Systems: All systems reviewed & are unremarkable except as noted in Subjective Physical Exam Physical Exam: VITALS: Reviewed. WEIGHT/BMI reviewed. GEN: Healthy appearing, well-developed, NAD. PSYCH: Good Judgment. AOx3. Normal memory, mood, and affect. HEENT -Head: NC/AT; -Eyes: PERRL, EOMI. No discharge or redn ess; -Ears: External ears are normal. -Nose: Normal nares. -Mouth and throat: MMM. Normal gums, muc marcella, palate,. Good dentition. NECK: Supple, with no masses. CV: RRR, no m/r/g. LUNGS: CTAB, no w/r/c. ABD: Soft, NT/ND, hyperactive BS, no masses or organomegaly. : N/A SKIN: Warm, well perfused. No skin rashes or abnormal lesions. MSK: No deformities, Normal gait. EXT: No clubbing, cyanosis, or edema. NEURO: Ambulating with no limitations. Normal muscle strength and tone. No focal deficits. Results & Data Results & Data Vital Signs (Past 12 Hours) Vital Signs Temp Pulse Pulse Resp BP Pulse Ox O2 Del Method 06/11/25 04:07 36.9 C 98 H 18 107/74 98 Room Air 06/11/25 00:05 36.9 C 105 H 18 106/72 97 Room Air 06/10/25 22:20 102 H 06/10/25 19:50 37 C 109 H 18 107/72 98 Room Air Laboratory Results Short CBC 06/11/25 Range/Units 05:53 WBC 7.85 (4.8-10.8) K/ul Hgb 7.7 L (12.0-16.0) g/dL Hct 23.4 L (37.0-47.0) % Plt Count 374 (130-400) K/uL BMP 06/11/25 05:53 Sodium 137 Potassium 3.8 Chloride 103 Carbon Dioxide 28 BUN 6 Creatinine 0.27 L Glucose 111 H Calcium 7.5 L
[2025-06-11 08:52] LABS: Thyroid Stimulating Hormone 1.424 uIu/ml (0.300-4.500)
--- NOTE | 2025-06-11 11:17 | Gastroenterology Progress Note ---
Date of Service June 11, 2025 Assessment & Plan (1) Left sided ulcerative colitis with rectal bleeding: (2) Acute blood loss anemia: (3) Iron deficiency anemia: (4) Abnormal finding on CT scan: (5) Abdominal pain: Plan IMPRESSION: 45-year-old presenting with lower abdominal pain, severe bloody diarrhea. Colonoscopy demonstrates fulminant ulcerative colitis involving the rectum, sigmoid and descending colon PLAN: -- Pathology report reviewed and confirms severe chronic active colitis involving the rectum, sigmoid colon and descending colon. Fortunately the disease spares the remaining colon -- The patient is clinically improving on IV steroids. Try to transition her to oral steroids with taper at 5 mg/week. Can accelerate taper depending on response to biologic therapy. -- Continue mesalamine as adjunctive therapy for the time being -- The patient has follow-up in the GI clinic 06/18/2025 at which point biologic therapy will be implemented, likely infliximab or Entyvio. -- Hepatitis panel is still pending. QuantiFERON gold is indeterminate and therefore I will order chest x-ray for follow-up -- Continue low residue diet for the time being. 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 Blood loss certainly related to pulmonary colitis. Iron replacement. Thank you for involving me in the care of this patient. Will continue to follow. Please contact the GI team with any questions. Admission and Anticipated Discharge Date Admission Date: June 07, 2025 Subjective The patient notes feeling better this morning. She continues to have some loose watery bowel movements with blood as anticipated. Her abdominal pain is decreased. She does have some increased appetite. She does note that the steroids are causing her to have some degree of sleep disturbance but overall feels much better compared to initial presentation. She denies any nausea or vomiting or any fevers. Review of Systems Review of Systems: All systems reviewed & are unremarkable except as noted in HPI & below Physical Exam Constitutional: WD/WN, vitals as above Respiratory: normal respiratory effort, lungs clear to auscultation Cardiovascular: RRR, no murmur, no edema Gastrointestinal (Abdomen): normal bowel sounds, soft, nontender, no hepatosplenomegaly Results & Data Results & Data Vital Signs (Past 12 Hours) Vital Signs Temp Pulse Pulse Resp BP Pulse Ox O2 Del Method 06/11/25 07:40 102 H 06/11/25 07:40 36.8 C 99 H 18 110/77 99 Room Air 06/11/25 04:07 36.9 C 98 H 18 107/74 98 Room Air 06/11/25 00:05 36.9 C 105 H 18 106/72 97 Room Air PG Care Time/CCT Total # of Minutes Spent Total Time Spent with Patient: Total time spent is greater than 50% in coordination of care (as documented) at patient's floor/unit and/or counseling patient: Coding [place] [address] SUB INP/OBS CARE 2/35MIN Patient Type Established History Expanded Problem Focused Exam Expanded Problem Focused Medical Decision Making Moderate Complexity Diagnoses Left sided ulcerative colitis with rectal bleeding K51.511 Acute blood loss anemia D62 Iron deficiency anemia due to chronic blood loss D50.0 Iron deficiency anemia type: chronic blood loss Abnormal finding on CT scan R93.89 Abdominal pain R10.32 Abdominal location: left lower quadrant (3) Iron deficiency anemia Iron deficiency anemia type: chronic blood loss Qualified Code(s): D50.0 - Iron deficiency anemia secondary to blood loss (chronic) (5) Abdominal pain Abdominal location: left lower quadrant Qualified Code(s): R10.32 - Left lower quadrant pain
--- NOTE | 2025-06-11 11:56 | XRay Report ---
XR chest 2V PA/lateral CLINICAL HISTORY: Indeterminate QuantiFERON COMPARISON STUDY: None FINDINGS: Heart size and pulmonary vasculature are normal. No consolidation or pleural effusion seen. IMPRESSION: No evidence of pneumonia. No evidence of active TB. ACT 112: Negative or not required by law. Electronically signed by: Rich Moseley M.D. 06/11/2025 11:55 AM
[2025-06-11] MEDS ORDERED: POTASSIUM PHOS 3 MMOL/1 ML INFUSION IV STA (12:00)
[2025-06-11] MEDS: POTASSIUM PHOSPHATE 9 MMOL in SODIUM CHLORIDE 0.9% 250 ML IV ONE (12:36)
[2025-06-12 07:15] LABS: Hematocrit (blood only) 27.1 % (37.0-47.0); Hemoglobin 8.6 g/dL (12.0-16.0); Mean Corpuscular Hemoglobin 30.3 pg (25.0-34.0); Mean Corpuscular Volume 95.4 fL (80.0-100.0); Platelet Count 360 K/uL (130-400); RDW Standard Deviation 52.0 fL (36.4-46.3); Red Blood Count 2.84 M/uL (4.20-5.40); White Blood Count 8.49 K/ul (4.8-10.8)
[2025-06-12 07:38] LABS: Anion Gap 7.0 (3-11); Blood Urea Nitrogen 7.0 mg/dl (6-23); Calcium 7.6 mg/dl (8.6-10.3); Carbon Dioxide 29.0 mmol/L (21-32); Chloride 100.0 mmol/L (98-107); Creatinine Clr Calc Pharmacy 174.2 ml/min; Glucose 90.0 mg/dl (70-99(Fasting)); Potassium 3.9 mmol/L (3.5-5.1); Sodium 136.0 mmol/L (136-145)
--- NOTE | 2025-06-12 09:27 | Gastroenterology Progress Note ---
Date of Service June 12, 2025 Assessment & Plan (1) Left sided ulcerative colitis with rectal bleeding: Plan: Subjectively improved. Okay to go home tomorrow on oral meds if she continues to improve Admission and Anticipated Discharge Date Admission Date: June 07, 2025 Subjective Says she is "world's better" than on admit. Still diarrhea but less bleeding. Still with pain with bowel movements. Says she is shooting for discharge tomorrow Physical Exam Physical Exam: She looks well Constitutional: WD/WN, vitals as above Results & Data Vital Signs (Past 12 Hours) Vital Signs Temp Pulse Pulse Resp BP Pulse Ox O2 Del Method 06/12/25 07:42 37.6 C H 105 H 20 110/75 99 Room Air 06/12/25 07:08 105 H 06/12/25 03:57 37.0 C 102 H 18 102/69 99 Room Air 06/11/25 23:22 37.0 C 124 H 16 108/74 100 Room Air 06/11/25 22:02 115 H
[2025-06-12] MEDS: predniSONE 20 MG TAB PO SCH (10:06)
--- NOTE | 2025-06-12 10:10 | Hospitalist Progress Note ---
<Statement entered by Julio Cesar Nunez, DO - 06/12/25 14:49> Improving but still with BRBPR with each bowel movement. frequency decreasing. ready for dc home soon Patient seen and examined Agree with VIJAY I spent a total of 20 minutes coordinating, documenting, and providing care for this patient excluding time spent in the performance of separately billed services. This included personally reviewing all current laboratories and imaging studies, medical reconciliation, outpatient chart review and discussion with specialists Date of Service June 12, 2025 Assessment & Plan (1) Colitis: (2) Acute blood loss anemia: (3) Iron deficiency anemia: (4) Sinus tachycardia: (5) Hypocalcemia: (6) Abnormal finding on CT scan: (7) Anxiety: Plan 45 year old female with PMH significant for anxiety who presented to the ED on 06/06/2025 with abdominal pain and bloody stools and was found to have severe colitis. Colitis Patient presenting with abdominal pain and bloody stools x2 months Underwent colonoscopy in [facility] with internal hemorrhoids visualized and removal of benign polyp per patient and then developed bloody diarrhea afterwards; Completed course of antibiotics and steroids without improvement Admitting CTAP revealed severe colitis of left hemicolon and rectosigmoid and mildly edematous pancreas (lipase low)-> Underwent colonoscopy on 06/08/2025 revealing severe left sided colitis, fulminant colitis from descending colon to anal verge with diffuse ulceration, inflammatory mass, friability and spontaneous bleeding Stool studies positive for C diff gene, negative for toxin-> Vancomycin day 11/21 GI consult with following recommendations: -Await pathology/biopsies, calprotectin, TB workup negative, Hep B, C negative, Hep A pending -on Oral Pred 60 mg now see GI note by Ramona Davison on 06/09 for taper instructions -Continue mesalamine tid -Low residue diet -Trend H&H and transfuse PRN (see below) -Appt on 06/18/2025 with [facility] to discuss starting biologic therapy Acute blood loss anemia Iron deficiency anemia Hgb 6.7 s/p 1 unit PRBCs on 06/08-> 9.3-> 8.2-> 7.7-> 8.6 today; will need Hgb stabilized for d/c poss tomorrow Multifactorial in setting of OLIVIER and hematochezia Iron, TIBC, transferrin all low despite 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 Venofer daily and transition to PO at discharge Continue to trend H&H Urinary retention-> resolved Straight cath yesterday for scan >500cc Voiding spontaneously today; no urinary symptoms Sinus tachycardia-> improving HR slowly improving, now high 90's Likely secondary to acute blood loss anemia and pain EKG revealed sinus tachycardia Monitor telemetry Hypophosphatemia Phos 2.4 today; asymptomatic and replaced with KPhos 9 mmol today Replete PRN Hypocalcemia Vitamin D deficiency Ca 7.5, ionized ca 1.09 Vitamin D 12.7 Start ergocalciferol 1,250mcg weekly Recommend outpatient recheck of level in 6-[address] findings 1. CTAP revealed 3mm right middle lobe subpleural nodule -Recommend CT chest follow up in 3-6 months-> instructed patient to discuss with PCP 2. CTAP revealed non obstructing bilateral intrarenal calculi measuring up to 1.1cm in right kidney and 4mm in left kidney without hydronephrosis -Recommend outpatient follow up with Urology for stone removal/stent placement-> referral sent to [facility] [facility] Anxiety Continue Seroquel DVT Prophylaxis: SCDs due to ABLA Code Status: FULL CODE PCP: Irene Olivas () Disposition: DC to home when medically stable Patient seen in collaboration with Dr. Nunez. Please see addendum. I spent a total of 35 minutes coordinating, documenting and providing care for this patient excluding time spent in the performance of separately billed services or time spent by another provider/QHP. Admission and Anticipated Discharge Date Admission Date: June 07, 2025 Subjective Patient seen and examined at bedside. Reporting feeling better than yesterday with less rectal pain, but continues to have bloody stool, worse after lunch yesterday. Tolerating a low residue diet without nausea or increased abdominal pain. Has generalized abdominal tenderness with palpation. Denies dizziness, shortness of breath, chest pain, palpitations, numbness, tingling, weakness, Review of Systems Review of Systems: All systems reviewed & are unremarkable except as noted in Subjective Physical Exam Physical Exam: VITALS: Reviewed. WEIGHT/BMI reviewed. GEN: Healthy appearing, well-developed, NAD. PSYCH: Good Judgment. AOx3. Normal memory, mood, and affect. HEENT -Head: NC/AT; -Eyes: PERRL, EOMI. No discharge or redn ess; -Ears: External ears are normal. -Nose: Normal nares. -Mouth and throat: MMM. Normal gums, muc marcella, palate,. Good dentition. NECK: Supple, with no masses. CV: RRR, tachy 110, no m/r/g. LUNGS: CTAB, no w/r/c. ABD: Soft, mildly tender throughout, active BS, no masses or organomegaly. : N/A SKIN: Warm, well perfused. No skin rashes or abnormal lesions. MSK: No deformities, Normal gait. EXT: No clubbing, cyanosis, or edema. NEURO: Ambulating with no limitations. Normal muscle strength and tone. No focal deficits. Results & Data Results & Data Vital Signs (Past 12 Hours) Vital Signs Temp Pulse Pulse Resp BP Pulse Ox O2 Del Method 06/12/25 07:42 37.6 C H 105 H 20 110/75 99 Room Air 06/12/25 07:08 105 H 06/12/25 03:57 37.0 C 102 H 18 102/69 99 Room Air 06/11/25 23:22 37.0 C 124 H 16 108/74 100 Room Air Laboratory Results Short CBC 06/12/25 Range/Units 06:49 WBC 8.49 (4.8-10.8) K/ul Hgb 8.6 L (12.0-16.0) g/dL Hct 27.1 L (37.0-47.0) % Plt Count 360 (130-400) K/uL BMP 06/12/25 06:49 Sodium 136 Potassium 3.9 Chloride 100 Carbon Dioxide 29 BUN 7 Creatinine 0.36 L Glucose 90 Calcium 7.6 L (3) Iron deficiency anemia Iron deficiency anemia type: chronic blood loss Qualified Code(s): D50.0 - Iron deficiency anemia secondary to blood loss (chronic)
[2025-06-13 06:32] LABS: Hematocrit (blood only) 22.8 % (37.0-47.0); Hemoglobin 7.2 g/dL (12.0-16.0); Mean Corpuscular Hemoglobin 30.3 pg (25.0-34.0); Mean Corpuscular Volume 95.8 fL (80.0-100.0); Platelet Count 337 K/uL (130-400); RDW Standard Deviation 52.6 fL (36.4-46.3); Red Blood Count 2.38 M/uL (4.20-5.40); White Blood Count 7.35 K/ul (4.8-10.8)
[2025-06-13 07:43] LABS: Anion Gap 6.0 (3-11); Blood Urea Nitrogen 9.0 mg/dl (6-23); Calcium 7.7 mg/dl (8.6-10.3); Carbon Dioxide 29.0 mmol/L (21-32); Chloride 101.0 mmol/L (98-107); Creatinine Clr Calc Pharmacy 183.4 ml/min; Glucose 85.0 mg/dl (70-99(Fasting)); Potassium 3.7 mmol/L (3.5-5.1); Sodium 136.0 mmol/L (136-145)
--- NOTE | 2025-06-13 07:45 | Hospitalist Progress Note ---
<Statement entered by Julio Cesar Nunez DO - 06/13/25 13:07> She is clinically improving but not yet ready for discharge. Hgb dropped today, will recheck in AM Appreciate GI input. continue prednisone taper. she has a GI OP appt this week Patient seen and examined Agree with VIJAY I spent a total of 22minutes coordinating, documenting, and providing care for this patient excluding time spent in the performance of separately billed services. This included personally reviewing all current laboratories and imaging studies, medical reconciliation, outpatient chart review and discussion with specialists Date of Service June 13, 2025 Assessment & Plan (1) Colitis: (2) Acute blood loss anemia: (3) Iron deficiency anemia: (4) Sinus tachycardia: (5) Hypocalcemia: (6) Abnormal finding on CT scan: (7) Anxiety: Plan 45 year old female with PMH significant for anxiety who presented to the ED on 06/06/2025 with abdominal pain and bloody stools and was found to have severe colitis. Colitis Patient presenting with abdominal pain and bloody stools x2 months Underwent colonoscopy in Sept with internal hemorrhoids visualized and removal of benign polyp per patient and then developed bloody diarrhea afterwards; Completed course of antibiotics and steroids without improvement Admitting CTAP revealed severe colitis of left hemicolon and rectosigmoid and mildly edematous pancreas (lipase low)-> Underwent colonoscopy on 06/08/2025 revealing severe left sided colitis, fulminant colitis from descending colon to anal verge with diffuse ulceration, inflammatory mass, friability and spontaneous bleeding Stool studies positive for C diff gene, negative for toxin-> Vancomycin day 12/22 GI consult with following recommendations: -Await pathology/biopsies, calprotectin, TB workup negative, Hep B, C negative, Hep A pending -on Oral Pred 60 mg started 06/12 and will be on this x 1 week, see GI note by Ramona Davison on 06/09 for taper instructions -Continue mesalamine tid -Low residue diet -Trend H&H and transfuse PRN (see below) -Appt on 06/18/2025 with [facility] to discuss starting biologic therapy; Acute blood loss anemia Iron deficiency anemia Hgb 6.7 s/p 1 unit PRBCs on 06/08-> 9.3-> 8.2-> 7.7-> 8.6->7.7 today; will need Hgb stabilized for d/c will consult GI for additional recommendations Multifactorial in setting of OLIVIER and hematochezia Iron, TIBC, transferrin all low 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 Venofer daily and transition to PO at discharge Continue to trend H&H; GI aware and without immediate concern d/t no active bleeding Urinary retention-> resolved Straight cath for scan >500cc Voiding spontaneously today; no urinary symptoms Sinus tachycardia-> improving HR slowly improving, now high 90's Likely secondary to acute blood loss anemia and pain EKG revealed sinus tachycardia Monitor telemetry Hypophosphatemia Phos 3.2 today; replace as needed Hypocalcemia Vitamin D deficiency Ca 7.5, ionized ca 1.09 Vitamin D 12.7 Start ergocalciferol 1,250mcg weekly Recommend outpatient recheck of level in 6-[address] findings 1. CTAP revealed 3mm right middle lobe subpleural nodule -Recommend CT chest follow up in 3-6 months-> instructed patient to discuss with PCP 2. CTAP revealed non obstructing bilateral intrarenal calculi measuring up to 1.1cm in right kidney and 4mm in left kidney without hydronephrosis -Recommend outpatient follow up with Urology for stone removal/stent placement-> referral sent to [facility] Anxiety Continue Seroquel DVT Prophylaxis: SCDs due to ABLA Code Status: FULL CODE PCP: Irene Olivas () Disposition: DC to home when medically stable Patient seen in collaboration with Dr. Nunez. Please see addendum. I spent a total of 35 minutes coordinating, documenting and providing care for this patient excluding time spent in the performance of separately billed services or time spent by another provider/QHP. Admission and Anticipated Discharge Date Admission Date: June 07, 2025 Subjective Patient seen and examined at bedside. Reporting feeling generally worse than yesterday. Feels her abdominal pain is worse today; yesterday she had more rectal bleeding mostly after lunch. Tolerates breakfast foods better. She had several questions about appropriate food choices and unsure what foods are best for her current condition. Discussed low residue diet options and also keeping a diary of foods best tolerated or foods that seem to aggravate her symptoms. She was agreeable to this and plans to keep a record to bring to her future GI appointments. She understands the need to remain in the hospital until her blood counts stabilize. She reports having bilateral leg pain, not with walking, just feels this genera lly sore. She denies pain with walking, swelling, or tenderness with palpation. She is walking around the room. Denies chills, headache, dizziness, shortness of breath, chest pain, palpitations, numbness, tingling, swelling. Review of Systems Review of Systems: All systems reviewed & are unremarkable except as noted in Subjective Physical Exam Physical Exam: VITALS: Reviewed. WEIGHT/BMI reviewed. GEN: Healthy appearing, fair ,well-developed, NAD. PSYCH: Good Judgment. AOx3. Normal memory, mood, and affect. HEENT -Head: NC/AT; -Eyes: PERRL, EOMI. No discharge or redn ess; -Ears: External ears are normal. -Nose: Normal nares. -Mouth and throat: MMM. Normal gums, muc marcella, palate,. Good dentition. NECK: Supple, with no masses. CV: RRR, tachy 110, no m/r/g. no peripheral swelling LUNGS: CTAB, no w/r/c. ABD: Soft, mildly tender throughout, active BS, no masses or organomegaly. : N/A SKIN: Warm, well perfused. No skin rashes or abnormal lesions. MSK: No deformities, Normal gait. EXT: No clubbing, cyanosis, or edema. NEURO: Ambulating with no limitations. Normal muscle strength and tone. No focal deficits. Results & Data Results & Data Vital Signs (Past 12 Hours) Vital Signs Temp Pulse Pulse Resp BP Pulse Ox O2 Del Method 06/13/25 07:10 96 H 06/13/25 03:30 36.9 C 96 H 18 101/68 99 Room Air 06/12/25 23:02 36.8 C 95 H 16 108/76 100 Room Air 06/12/25 22:04 94 H 06/12/25 19:51 36.9 C 106 H 16 109/76 98 Room Air Laboratory Results Short CBC 06/13/25 Range/Units 05:37 WBC 7.35 (4.8-10.8) K/ul Hgb 7.2 L (12.0-16.0) g/dL Hct 22.8 L (37.0-47.0) % Plt Count 337 (130-400) K/uL (3) Iron deficiency anemia Iron deficiency anemia type: chronic blood loss Qualified Code(s): D50.0 - Iron deficiency anemia secondary to blood loss (chronic)
--- NOTE | 2025-06-13 09:27 | Gastroenterology Progress Note ---
Date of Service June 13, 2025 Assessment & Plan (1) Left sided ulcerative colitis with rectal bleeding: Plan: She seems to be improving albeit slowly. I think she will do well with biologic treatment when it can be started as an outpatient. Not too concerned with hemoglobin as she isn't actively bleeding now. Admission and Anticipated Discharge Date Admission Date: June 07, 2025 Subjective Feels better. Still sore. BM's no longer bloody but now "orange/brown". Maybe a little bump in frequency yesterday. Hemoglobin dropped a little over night. It seems to be bouncing between 7 and 8. Physical Exam Physical Exam: She looks comfortable Constitutional: WD/WN, vitals as above Results & Data Vital Signs (Past 12 Hours) Vital Signs Temp Pulse Pulse Resp BP Pulse Ox O2 Del Method 06/13/25 08:03 36.8 C 105 H 20 99/67 L 99 Room Air 06/13/25 07:10 96 H 06/13/25 03:30 36.9 C 96 H 18 101/68 99 Room Air 06/12/25 23:02 36.8 C 95 H 16 108/76 100 Room Air 06/12/25 22:04 94 H
[2025-06-13] MEDS: MELATONIN 3 MG TAB PO PRN (22:19)
[2025-06-14 07:06] LABS: Hematocrit (blood only) 23.6 % (37.0-47.0); Hemoglobin 7.6 g/dL (12.0-16.0); Mean Corpuscular Hemoglobin 30.8 pg (25.0-34.0); Mean Corpuscular Volume 95.5 fL (80.0-100.0); Platelet Count 358 K/uL (130-400); RDW Standard Deviation 51.8 fL (36.4-46.3); Red Blood Count 2.47 M/uL (4.20-5.40); White Blood Count 6.11 K/ul (4.8-10.8)
--- NOTE | 2025-06-14 10:06 | Gastroenterology Progress Note ---
Date of Service June 14, 2025 Assessment & Plan (1) Left sided ulcerative colitis with rectal bleeding: Plan: 45 year old female with history of anxiety admitted w abd pain, bloody stools, CTAP w/ severe colitis with intense long-segment inflammation of the left hemicolon and the rectosigmoid. Stool studies reveal a positive c.diff gene but negative toxin, negative PCR and pending calprotectin. S/P colonoscopy which is concerning for ulcerative colitis w/ Severe (Flaherty Score 3) left-sided colitis, fulminant colitis is seen from the descending colon to the anal verge with diffuse ulceration, inflammatory mass, friability and spontaneous bleeding. Follow calprotectin Continue a tapering course of prednisone - Prednisone 60 mg once daily x 1 week - Prednisone 55 mg once daily x 1 week - Prednisone 50 mg once daily x 1 week - Prednisone 45 mg once daily x 1 week - Prednisone 40 mg once daily x 1 week - Prednisone 35 mg once daily x 1 week - Prednisone 30 mg once daily x 1 week - Prednisone 25 mg once daily x 1 week - Prednisone 20 mg once daily x 1 week - Prednisone 15 mg once daily x 1 week - Prednisone 10 mg once daily x 1 week - Prednisone 5 mg once daily x 1 week - Stop Continue oral Mesalamine (Delzicol) 800 mg three times daily Low residue diet as tolerated IV iron while admitted and then transition to oral iron Trend H&H Transfuse PRN per primary team OP GI follow up with [facility] Saturday I spent a total of 40 minutes on the date of service in review of patient's record, and previously obtained information in person and appropriate medical visit, discussion and education of plan, with patient and/or caregiver, placing orders for tests/referral/procedures as medically necessary and documentation of pertinent clinical information in patient's medical records for their visit today. Thank you for allowing us to participate in the care of this patient. Please call with any acute changes, questions or concerns. Please see addendum below with additional recommendation from my supervising physician. Admission and Anticipated Discharge Date Admission Date: June 07, 2025 Supervising Physician Co-Signing Physician Notes I saw and examined this patient with our nurse practitioner and agree with her assessment and plan. Patient discharged prior to my seeing her. Will follow-up with GI as an outpatient. Subjective Generally improving since admission. Abd pain resolved. Stools are less volume, less frequent, less blood. Stools are stool loose. She is maintaining oral intake but does report that for lunch and dinner her intake is smaller volume. She feels ready for discharge. 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 Calprotectin pending IBD Summary: ulcerative colitis - Onset of symptoms: Summer/Fall 2024 - Date of diagnosis: May 2025 - Disease Location: left sided colitis - IBD surgical hx: N/A - Current therapy: prednisome, mesalamine - Past therapy: N/A - Colonoscopy recall: 2025 Pathology 2024: FINAL DIAGNOSIS A. Colon, descending, biopsy: - Chronic colitis with severe activity with ulceration. - Negative for dysplasia. - See comment. B. Colon, sigmoid, biopsy: - Chronic colitis with severe activity with ulceration. - Negative for dysplasia. - See comment. C. Rectum, biopsy: - Chronic proctitis with severe activity. - Negative for dysplasia. - See comment. Comment: The specimens show a diffuse chronic active colitis/proctitis. No granulomas or viral cytopathic effect are identified Colonoscopy 2024: - Severe (Flaherty Score 3) left-sided colitis. Biopsied. - Fulminant colitis is seen from the descending colon to the anal verge with diffuse ulceration, inflammatory mass, friability and spontaneous bleeding. Review of Systems Review of Systems: All other findings negative except as noted in HPI. Physical Exam Constitutional: WD/WN, vitals as above Respiratory: normal respiratory effort, lungs clear to auscultation Cardiovascular: Rate/Rhythm: regular rate Gastrointestinal (Abdomen): normal bowel sounds, soft, nontender, no hep atosplenomegaly Skin: no rashes, warm and dry Results & Data Results & Data Vital Signs (Past 12 Hours) Vital Signs Temp Pulse Pulse Resp BP Pulse Ox O2 Del Method 06/14/25 08:07 98.1 F 98 H 20 93/60 L 98 Room Air 06/14/25 03:39 98.2 F 105 H 16 100/71 100 Room Air 06/13/25 23:16 98.1 F 90 18 111/69 99 Room Air 06/13/25 22:10 93 H Laboratory Results 06/14/25 06/09/25 Range/Units 06:50 08:20 WBC 6.11 (4.8-10.8) K/ul RBC 2.47 L (4.20-5.40) M/uL Hgb 7.6 L (12.0-16.0) g/dL Hct 23.6 L (37.0-47.0) % MCV 95.5 (80.0-100.0) fL MCH 30.8 (25.0-34.0) pg MCHC 32.2 (32.0-36.0) g/dL RDW Std Deviation 51.8 H (36.4-46.3) fL RDW Coeff of Pancho 15.5 H (11.5-14.5) % Plt Count 358 (130-400) K/uL MPV 8.3 L (9.4-12.4) fL Absolute Nucleated RBC 0.07 (0.00-0.12) K/uL Nucleated RBC % (auto) 1.1 % Hepatitis A Ab Total REACTIVE A (NON-REACTIVE) PG Care Time/CCT Total # of Minutes Spent Total Time Spent with Patient: Total time spent is greater than 50% in coordination of care (as documented) at patient's floor/unit and/or counseling patient: Coding Level of Care Code 37860 SUB INP/OBS CARE 235MIN Diagnoses Left sided ulcerative colitis with rectal bleeding K51.511
--- NOTE | 2025-06-14 12:01 | Discharge Summary ---
<Statement entered by Julio Cesar Nunez, DO - 06/14/25 15:28> Feeling better today. hgb improved. she would like to go home. continue prednisone taper. She has an appt with GI later this week. Seen and examined I spent a total of 23 minutes coordinating, documenting, and providing care for this patient excluding time spent in the performance of separately billed services. This included personally reviewing all current laboratories and imaging studies, medical reconciliation, outpatient chart review and discussion with specialists Discharge Summary Date of Service June 14, 2025 Principal Dx & Hospital Course #1 = Principal Diagnosis (1) Colitis: (2) Acute blood loss anemia: (3) Iron deficiency anemia: (4) Sinus tachycardia: (5) Hypocalcemia: (6) Abnormal finding on CT scan: (7) Anxiety: Plan Patient is a 45y/o F with PMHx significant for anxiety who presented to the ED on 06/06/25 with c/o abdominal pain and bloody stools. Severe left-sided colitis with rectal bleeding P/w abdominal pain and bloody stools x 2 months. Underwent colonoscopy in March with internal hemorrhoids, removal of benign polyp per patient. Developed bloody diarrhea s/p colonscopy in March; completed course of ABX and steroids w/o improvement. Admitting CTAP revealed severe colitis with intense long-segment inflammation of the left hemicolon and the rectosigmoid. S/p colonscopy on 06/08 c/f ulcerative colitis with severe left-sided colitis, fulminant colitis seen from the descending colon to the anal verge with diffuse ulceration, inflammatory mass, friability and spontaneous bleeding. Biopsies from colonscopy c/w chronic colitis with severe activity and ulceration, chronic proctitis with severe activity. Negative for dysplasia on all 3 biopsied samples. Stool studies negative except for C. diff gene, negative for toxin. Set to complete 10-day vancomycin course. Stool calprotectin still pending. Started on prednisone taper course as rec'd by GI, refer to their notes for further details. Also started on oral mesalamine 800mg TID, low residue diet. Abdominal pain improving. Stools still loose but not as frequent. F/u appt with [facility] [place] scheduled for 06/18/2025 to discuss initiation of biologic therapy. Acute blood loss anemia Iron deficiency anemia Required 1U PRBCs during hospital course with lowest recorded Hgb of 6.7, Hgb remains stable around 7-8 s/p transfusion on 06/08. Multifactorial in setting of OLIVIER and hematochezia, started on Fe supplementation. Pt reports stools are now orange/brown in coloration, no longer diffusely bloody. Urinary retention, resolved Straight cath for scan >500cc on 06/08. Voiding spontaneously now; no urinary symptoms. Sinus tachycardia EKG revealed sinus tachycardia. Suspect 2/2 ABLA and pain, overall improved >> will take time to resolve in light of volume repletion. Hypocalcemia Vitamin D deficiency Ca 7.5, ionized ca 1.09 and vitamin D 12.7; ergocalciferol 1,250mcg weekly initiated. Recommend outpatient recheck of level in 6-12wk. Abnormal CT findings 1. CTAP revealed 3mm right middle lobe subpleural nodule -Recommend CT chest follow up in 3-6 months >> instructed pt to discuss with PCP. 2. CTAP revealed nonobstructing bilateral intrarenal calculi measuring up to 1.1cm in right kidney and 4mm in left kidney without hydronephrosis -Recommend outpatient follow up with urology for consideration of stone claire tment >> discussed with pt. Anxiety Continue Seroquel. PCP: HEYDI Solano () Disposition: Pt is being DC'd home in stable condition with GI and PCP f/u appts. Patient seen in collaboration with Dr. Nunez. Please see addendum. I spent a total of 72 minutes coordinating, documenting, and providing care for this patient excluding time spent in the performance of separately billed services or time spent by another provider/QHP. This included personally reviewing all current laboratories and imaging studies, medical reconciliation, outpatient chart review and discussion with specialists. Notes For Next Care Provider Incidental finding of 3mm right middle lobe lung nodule on CTAP during admission, recommend CT chest in 3-6 months for follow-up. Incidental finding of nonobstructing renal calculi on CTAP during admission, recommend outpatient urology referral for consideration of stone treatment. Started on vit D supplementation, will need repeat vit D level and calcium level in 6-12 weeks. Medication Changes From Visit Steroid taper course, mesalamine, vit D supplementation, Pepcid, iron supplementation, PRN oxycodone, PRN Zofran and vancomycin. Admission HPI Per Admitting Provider 45-year-old female with past medical history significant for anxiety comes because of ongoing abdominal pain and bloody stools. Patient lives around [place] from [place]. Patient states she had colonoscopy in February 2025 and 1 polyp was taken out and the pathology came back unremarkable as per patient. Since mid of March 2025 she started to have some bloody stools. When she called her PCP and GI ,the bleeding was thought to be from internal hemorrhoids which was seen during the colonoscopy. Patient was advised for high-fiber. After that patient had episode of constipation and advised for mag citrate. After mag citrate she started to have diarrhea. The diarrhea did not subsided since then. And she is also having bloody stools. She had CAT scan and it was thought she was had diverticulitis. And she was given antibiotics for diverticulitis in first week of May 2025. As her symptoms did not improved she was put on a course of prednisone twice. Her last dose of prednisone is tomorrow. But her symptoms are not improving even though she is on steroids. Abdominal pain is getting worse. She is having several episodes of bloody stools daily. Denies any fevers. Has nausea but no vomiting. Appetite is down. Denies chest pain or shortness of breath. No cough. No headache. No runny nose or sore throat. Parents in the room. Past medical history. As mentioned above. Past surgical history. Colonoscopy. Tooth extraction. Social history. No smoking. No alcohol use. Family history. Paternal grandfather had leukemia and lung cancer. Paternal grandmother had skin cancer. Admission Exam Per Admitting Provider General- Not in distress Head- atraumatic Eyes- PERRL. ENT- oropharynx clear Neck- supple, no JVD. Lungs- clear to auscultation no wheezing or crackles Heart- regular rhythm; no murmur, no gallop. Abdomen- normal bowel sounds, soft, diffuse tender, guarding present, no distension Extremities- no pretibial edema, no erythema seen Neuro- alert, oriented PERRL, no facial palsy; no dysarthria; moves extremities Discharge Exam General: WD/WN, NAD, laying down in bed. A&Ox3, pleasant. HEENT: Normocephalic, atraumatic. External ear and nose normal, oropharynx normal. Respiratory: Normal respiratory effort, CTAB. Cardiovascular: Tachycardic rate, regular rhythm, no BLE edema. Abdomen/GI: Active bowel sounds, some lower abd tenderness, nondistended. No guarding. Extremities/Musculoskeletal: No cyanosis or clubbing, extremities motor strength intact, moves all extremities. Neurologic: No overt focal deficits, CN's II-XI not formally tested but appear grossly intact bilaterally. Updated Medication List Medication Instructions Recorded Confirmed Type ferrous sulfate 325 mg (65 mg 325 mg PO HS 06/06/25 06/06/25 History iron) tablet quetiapine 25 mg tablet 25 mg PO HS 06/06/25 06/06/25 History quetiapine 50 mg tablet 50 mg PO HS 06/06/25 06/06/25 History ergocalciferol (vitamin D2) 1,250 1,250 mcg PO .once weekly #30 caps 06/14/25 Rx mcg (50,000 unit) capsule famotidine 40 mg tablet 40 mg PO BID #60 tabs 06/14/25 Rx mesalamine 800 mg tablet,delayed 800 mg PO TID #90 tabs 06/14/25 Rx release ondansetron 4 mg disintegrating 4 mg PO Q6 PRN Nausea And Vomiting 06/14/25 Rx tablet #20 tabs oxycodone 5 mg tablet 5 mg PO Q8H PRN pain #10 tabs 06/14/25 Rx prednisone 10 mg tablet 50 mg (5 x 10 mg) PO DAILY 7 days 06/14/25 Rx #35 tabs prednisone 20 mg tablet 60 mg (3 x 20 mg) PO DAILY #12 tabs 06/14/25 Rx prednisone 5 mg tablet 45 mg (9 x 5 mg) PO DAILY 7 days 06/14/25 Rx #63 tabs prednisone 5 mg tablet 55 mg (11 x 5 mg) PO DAILY 7 days 06/14/25 Rx #77 tabs vancomycin 125 mg capsule 125 mg PO QID #12 caps 06/14/25 Rx Hospital Stay Data Consultations 06/06/25 21:43 ED Decision to Admit Stat 06/07/25 08:00 Consult Gastroenterology Routine Procedures Performed Operation Date: 06/08/25 16:45 Actual Procedures p Colonoscopy Biopsy Cytology - Yfn Mcdonald MD Findings: - Inflammation was found in a continuous and circumferential pattern from the anus to the splenic flexure. This was graded as Flahetry Score 3 (severe, with spontaneous bleeding, ulcerations). This was biopsied with a cold forceps for evaluation of inflammatory bowel disease. Fulminant colitis is seen from the descending colon to the anal verge with diffuse ulceration, inflammatory mass, friability and spontaneous bleeding. Impression: - Severe (Flaherty Score 3) left-sided colitis. Biopsied. - Fulminant colitis is seen from the descending colon to the anal verge with diffuse ulceration, inflammatory mass, friability and spontaneous bleeding. Clinical History Colitis. Procedure performed: Colonoscopy. FINAL DIAGNOSIS A. Colon, descending, biopsy: - Chronic colitis with severe activity with ulceration. - Negative for dysplasia. - See comment. B. Colon, sigmoid, biopsy: - Chronic colitis with severe activity with ulceration. - Negative for dysplasia. - See comment. C. Rectum, biopsy: - Chronic proctitis with severe activity. - Negative for dysplasia. - See comment. Comment: The specimens show a diffuse chronic active colitis/proctitis. No granulomas or viral cytopathic effect are identified. Diagnostic Imagining Performed 06/06/25 18:02 CT Abd and Pelvis [CT abd pelvis IV con only] Stat FINDINGS: LOWER CHEST: 3 mm nodular density in the subpleural right middle lobe (series 2, image 1) LIVER: No focal lesion identified. Hepatic steatosis. GALLBLADDER/BILIARY: Unremarkable gallbladder. No abnormal biliary dilatation. SPLEEN: Unremarkable. PANCREAS: The pancreas appears mildly edematous. ADRENALS: Unremarkable. KIDNEYS: Nonobstructing intrarenal calculi bilaterally, measuring up to 1.1 cm in the right kidney and 4 mm in the left kidney. No hydronephrosis identified. PERITONEUM/RETROPERITONEUM. No lymphadenopathy by size criteria. No aortic aneurysm. GASTROINTESTINAL: No obstruction. Intense long-segment inflammation of the left hemicolon and the rectosigmoid with diffuse wall thickening and pericolonic fat stranding. Normal appendix is identified. REPRODUCTIVE: IUD in place. URINARY BLADDER: Unremarkable. ABDOMINAL WALL: No significant hernia is identified. BONES: No acute findings. IMPRESSION: Severe colitis with intense long-segment inflammation of the left hemicolon and the rectosigmoid The pancreas appears mildly edematous. Recommend correlation with lipase to exclude pancreatitis 3 mm right middle lobe subpleural nodule is nonspecific and may be infectious/inflammatory in nature. If indicated, thoracic CT follow-up in 3-6 months may be considered. Pending Results Patient Have Any Pending Studies at Discharge: Yes Discharge Instructions Given to Patient (Per Discharging Provider) Ms. Monson, norma were admitted to [facility] after presenting with abdominal pain and bloody stools. You underwent a colonscopy which showed severe colitis concerning for ulcerative colitis. You were treated with IV steroids and a medication called mesalamine. You will need to take oral steroids in a taper fashion over the next several weeks as recommended by GI. Prescriptions for a month's worth of prednisone was sent over to your pharmacy. You will need to contact GI if they plan on prolonging your steroid taper course as you will need additional prescriptions for that. You have been prescribed a medication called famotidine (Pepcid) to take while on the steroid taper course in order to prevent GI upset. You have a follow-up appointment with [facility] scheduled for 06/18/2025 at 11:00am to discuss biologic medication for inflammatory bowel disease. Your blood loss through diarrhea caused you to be anemic to the point of needing a blood transfusion. Your hemoglobin levels have been stable since the blood transfusion. You received IV iron while in the hospital and will need to continue taking oral iron supplementation at home. Your calcium and vitamin D levels were also found to be low. You were started on vitamin D supplementation which you will need to take weekly and then have your level rechecked in 6-12 weeks to determine daily supplement dosing. Please ask your PCP regarding this. Your CT scan of your abdomen noted an incidental finding of a small pulmonary nodule measuring 3mm in size in the right lung. We recommend a repeat CT scan of your chest in 3-6 months - please ask your PCP to order this for you. You have a follow-up appointment with your PCP scheduled for 06/22/2025 at 11:00am. You were also found to have a positive C. difficile gene and were started on oral vancomycin. Please continue to take this medication as prescribed. Please take good care of yourself. It has been a pleasure taking care of you. If you have any questions regarding your recent hospitalization, please contact [facility] and request a [facility] @ [phone]. Total Time Total Time Spent Total Time Spent (In Minutes): 72
[2025-06-14 12:59] LABS: Hepatitis A Antibody IgM NON-REACTIVE (NON-REACTIVE)
== END 2025-06-14 14:51 | disposition home or self-care (01) | DRG 386 ==
LOC: ED 17:36 → SUATTDRO 06-07 00:55 → 2W 06-07 00:55